=== PATIENT | female | born 1955 | race Caucasian/White ===

== ENCOUNTER 2023-10-24 13:51 | Inpatient (IN) | payer BC, MEDICARE ==
--- NOTE | 2023-10-24 14:46 | ED ---
General Adult HPI - General Chief complaint: Neck Pain/Injury Stated complaint: Swelling in neck Time Seen by Provider: 10/24/23 14:13 Source: patient Mode of arrival: wheelchair Limitations: no limitations - History of Present Illness Initial comments: Dictation was produced using [employer] dictation software. please excuse any grammatical, word or spelling errors. Chief Complaint: 68-year-old female presents to the emergency department with swollen left neck History of Present Illness: Patient is a 68-year-old female for the last several months she has noticed swelling and pain to her left neck. She thought that it was perhaps maybe her clavicle. States that the swelling has been there unchanged for the last several months until last week she was carrying heavy mulch she noticed that there was a change in size. She thought that perhaps may be that there was some sort of abnormality at the proximal clavicle. Patient today has been complaining of fever and chills. She also has been feeling short of breath and tingly all over. The ROS documented in this emergency department record has been reviewed and confirmed by me. Those systems with pertinent positive or negative responses have been documented in the HPI. All other systems are other negative and/or noncontributory. - Related Data Home Medications Medication Instructions Recorded Confirmed No Known Home Medications 10/24/23 10/24/23 Allergies Allergy/AdvReac Type Severity Reaction Status Date / Time No Known Allergies Allergy Verified 10/24/23 15:16 Review of Systems ROS Statement: Those systems with pertinent positive or pertinent negative responses have been documented in the HPI. ROS Other: All systems not noted in ROS Statement are negative. Past Medical History Past Medical History: No Reported History History of Any Multi-Drug Resistant Organisms: None Reported Past Surgical History: Breast Surgery, Orthopedic Surgery Additional Past Surgical History / Comment(s): ankle surgery Past Psychological History: No Psychological Hx Reported Smoking Status: Current some day smoker Past Alcohol Use History: Occasional Past Drug Use History: None Reported General Exam - General Exam Comments Initial Comments: PHYSICAL EXAM: General Impression: Alert and oriented x3, not in acute distress HEENT: Normocephalic atraumatic, extra-ocular movements intact, pupils equal and reactive to light bilaterally, mucous membranes moist, left neck shows swelling and induration without any redness to the left sternocleidomastoid and left proximal clavicle Cardiovascular: Heart regular rate and rhythm Chest: Able to complete full sentences, no retractions, no tachypnea Abdomen: abdomen soft, non-tender, non-distended, no organomegaly Musculoskeletal: Pulses present and equal in all extremities, no peripheral edema Motor: no focal deficits noted Neurological: CN II-XII grossly intact, no focal motor or sensory deficits noted Skin: Intact with no visualized rashes Psych: Normal affect and mood Limitations: no limitations Course Vital Signs 10/24/23 10/24/23 14:01 16:33 Temperature 97.8 F Pulse Rate 107 H 97 Respiratory 20 20 Rate Blood Pressure 125/67 128/73 O2 Sat by Pulse 99 95 Oximetry EKG Findings - EKG Comments: EKG Findings:: My EKG interpretation: Ventricular rate 101, sinus tachycardia,. 157, cures 90, QTc 389. No TN prolongation, no QTC prolongation, no ST or T-wave changes noted. Overall, this EKG is unremarkable Medical Decision Making - Medical Decision Making Was pt. sent in by a medical professional or institution (, PA, RN CHEMICAL DEPENDENCY, urgent care, hospital, or correction...) When possible be specific @ -No Did you speak to anyone other than the patient for history (EMS, parent, family, police, friend...)? What history was obtained from this source @ -No Did you review nursing and triage notes (agree or disagree)? Why? @ -I reviewed and agree with nursing and triage notes Were old charts reviewed (outside hosp., previous admission, EMS record, old EKG, old radiological studies, urgent care reports/EKG's, correction records)? Report findings @ -No old charts were reviewed Differential Diagnosis (chest pain, altered mental status, abdominal pain women, abdominal pain men, vaginal bleeding, musculoskeletal, weakness, fever, dyspnea, syncope, headache, dizziness, GI bleed, back pain, seizure, CVA, palpatations, mental health)? @ -Differential Fever: Pneumonia, viral URI, endocarditis, myocarditis, pericarditis, otitis, sinusitis, peritonsillar Abscess, retropharyngeal Abscess, epiglottitis, peritonitis, appendicitis, Teodora cystitis, diverticulitis, hepatitis, colitis, UTI, PID, TOA, pyelonephritis, prostatitis, epididymitis, meningitis, encephalitis, pulmonary embolism, CVA, thyroid storm, pancreatitis, adrenal crisis, cavernous sinus thrombosis, this is not meant to be an all-inclusive list. EKG interpreted by me (3pts min.). @ -See above X-rays interpreted by me (1pt min.). @ -None done CT interpreted by me (1pt min.). @ -CT soft tissue neck shows destruction of the left proximal clavicle. May be pathologic may be due to osteomyelitis or metastasis. There is also soft tissue hypodensity at the sternocleidomastoid. Concern for abscess versus hematoma. U/S interpreted by me (1pt. min.). @ -None done What testing was considered but not performed or refused? (CT, X-rays, U/S, labs)? Why? @ -None What meds were considered but not given or refused? Why? @ -None Did you discuss the management of the patient with other professionals ( professionals i.e. , PA, RN CHEMICAL DEPENDENCY, lab, RT, psych nurse, social media specialist, director of maintenance, teacher, transit authority police officer, caser in)? Give summary @ -Case discussed with hospitalist for admission Was smoking cessation discussed for >3mins.? @ -No Was critical care preformed (if so, how long)? @ -No Were there social determinants of health that impacted care today? How? (Homelessness, low income, unemployed, alcoholism, drug addiction, transportation, low edu. Level, literacy, decrease access to med. care, [facility], rehab)? @ -No Was there de-escalation of care discussed even if they declined (Discuss DNR or withdrawal of care, Hospice)? DNR status @ -No What co-morbidities impacted this encounter? (DM, HTN, Smoking, COPD, CAD, Cancer, CVA, ARF, Chemo, Hep., AIDS, mental health diagnosis, sleep apnea, morb id obesity)? @ -None Was patient admitted / discharged? Hospital course, mention meds given and rou te, prescriptions, significant lab abnormalities, going to OR and other pertinent info. @ -68-year-old female presents to the emergency department with acute on chronic neck pain. Vital signs upon arrival are within acceptable limits. Seems like patient had insidious onset of her symptoms that started initially back in June after she fell and hurt her left collarbone. She does have extending symptoms that go into her left proximal neck. Leukocytosis 27.1. Metabolic panel is within acceptable limits. CT soft tissue neck shows mass versus infection. Patient started antibiotics. Will be admitted with consultation to orthopedic surgery, ENT and infectious disease. Undiagnosed new problem with uncertain prognosis? @ -No Drug Therapy requiring intensive monitoring for toxicity (Heparin, Nitro, Insulin, Cardizem)? @ -No Were any procedures done? @ -No Diagnosis/symptom? Acute, or Chronic, or Acute on Chronic? Uncomplicated (without systemic symptoms) or Complicated (systemic symptoms)? @ -Neck mass Side effects of treatment? @ -No Exacerbation, Progression, or Severe Exacerbation? @ -No Poses a threat to life or bodily function? How? (Chest pain, USA, ME, pneumonia, PE, COPD, DKA, ARF, appy, cholecystitis, CVA, Diverticulitis, Homicidal, Suicidal, threat to staff... and all critical care pts) @ -yes - Lab Data Result diagrams: 10/24/23 15:09 10/24/23 15:09 Lab Results 10/24/23 10/24/23 Range/Units 15:09 15:09 WBC 27.1 H (3.8-10.6) k/uL RBC 4.15 (3.80-5.40) m/uL Hgb 12.0 (11.4-16.0) gm/dL Hct 38.6 (34.0-46.0) % MCV 93.0 (80.0-100.0) fL MCH 29.0 (25.0-35.0) pg MCHC 31.2 (31.0-37.0) g/dL RDW 15.2 (11.5-15.5) % Plt Count 244 (150-450) k/uL MPV 11.0 Neutrophils % 94 % Lymphocytes % 4 % Monocytes % 1 % Eosinophils % 0 % Basophils % 0 % Neutrophils # 25.6 H (1.3-7.7) k/uL Lymphocytes # 1.0 (1.0-4.8) k/uL Monocytes # 0.3 (0-1.0) k/uL Eosinophils # 0.1 (0-0.7) k/uL Basophils # 0.0 (0-0.2) k/uL Manual Slide Review Performed Sodium 135 L (137-145) mmol/L Potassium 3.2 L (3.5-5.1) mmol/L Chloride 103 (98-107) mmol/L Carbon Dioxide 17 L (22-30) mmol/L Anion Gap 15 mmol/L BUN 38 H (7-17) mg/dL Creatinine 1.27 H (0.52-1.04) mg/dL Est GFR (CKD-EPI)AfAm 50 (>60 ml/min/1.73 sqM) Est GFR (CKD-EPI)NonAf 43 (>60 ml/min/1.73 sqM) Glucose 107 H (74-99) mg/dL Calcium 8.4 (8.4-10.2) mg/dL Disposition Clinical Impression: Neck mass Disposition: ADMITTED IP TO THIS HOSP Condition: Fair Referrals: None,Stated [Primary Care Provider] - 1-2 days Decision Time: 17:42
[2023-10-24 15:27] LABS: African American GFR (CKD) 50 (>60 ml/min/1.73 sqM); Anion Gap 15 mmol/L; Blood Urea Nitrogen 38 mg/dL (7-17); Calcium 8.4 mg/dL (8.4-10.2); Carbon Dioxide 17 mmol/L (22-30); Chloride 103 mmol/L (98-107); Glucose 107 mg/dL (74-99); Non-African American GFR(CKD) 43 (>60 ml/min/1.73 sqM); Potassium 3.2 mmol/L (3.5-5.1); Sodium 135 mmol/L (137-145)
[2023-10-24 15:28] LABS: Basophils % (A) 0 %; Eosinophils # (A) 0.1 k/uL (0-0.7); Eosinophils % (A) 0 %; HCT 38.6 % (34.0-46.0); Lymphocytes % (A) 4 %; MCHC 31.2 g/dL (31.0-37.0); Monocytes # (A) 0.3 k/uL (0-1.0); Monocytes % (A) 1 %; Neutrophils # (A) 25.6 k/uL (1.3-7.7); Neutrophils % (A) 94 %; Platelet Count 244 k/uL (150-450); RBC 4.15 m/uL (3.80-5.40); RDW 15.2 % (11.5-15.5); WBC 27.1 k/uL (3.8-10.6)
[2023-10-24] MEDS: MORPHINE SULFATE 4 MG/ML SYRINGE IV STA (16:14)
--- NOTE | 2023-10-24 16:49 | CT ---
EXAMINATION TYPE: CT soft tissue neck w con DATE OF EXAM: 10/24/2023 COMPARISON: HISTORY: Left side neck mass. CT DLP: 216.7 mGycm CONTRAST: Patient injected with 80 mL of Isovue 300. TECHNIQUE: Axial images at 3 mm thick sections. Reconstructed images in the coronal plane and sagitt al plane are reviewed. FINDINGS: Limited CT sections are obtained the lung apices. The lung apices appear clear. CT neck: There is ill-defined hypodensity within the left sternocleidomastoid muscle. Muscle is expanded. This extends to the sternal clavicular junction. The left clavicular head is fragmented. Soft tissue hypo density extends from this area into the sternocleidomastoid muscle. Abscess and hematoma are primary within the differential. Underlying metastatic abnormality pathologic fracture should be considered a t the distal clavicle in addition to osteomyelitis. The torus tubarius and fossa of Rosenmuller are normal. [employer] spaces are normal. Paranasal sin uses and mastoid air cells are clear. Parotid glands appear normal and symmetrical. Submandibular glands, are normal. Parapharyngeal spac es are normal. No suspicious adenopathy is evident. The hypopharynx appears within normal limits. Vocal cord level appear symmetrical. Thyroid as visualized is normal. IMPRESSION: 1. Fracture fragments at the medial left clavicle. May be pathologic due to osteomyelitis or metastas is. 2. Soft tissue hypodensity extends from the fracture site into the sternal cleidomastoid muscle expan ding the muscle and extending to nearly the clavicular level. Abscess and hematoma felt to be most li joey within the differential.
[2023-10-24] MEDS ORDERED: VANCOMYCIN IV PER PHARMACY 1 EACH MISC MISCELLANE PRN (17:23)
[2023-10-24] MEDS ORDERED: MORPHINE SULFATE 4 MG/ML SYRINGE IV PRN (17:36)
[2023-10-24] MEDS ORDERED: NALOXONE 0.4 MG/ML 1 ML VIAL IV PRN (17:36)
[2023-10-24] MEDS ORDERED: PIPERACILLIN-TAZOBACTAM 3.375 GM in SODIUM CHLORIDE 0.9% 100 ML IVPB SCH (18:30)
[2023-10-24] MEDS: CEFEPIME 2 GM in SODIUM CHLORIDE 0.9% 100 ML IVPB STA (18:48)
[2023-10-24] MEDS: SODIUM CHLORIDE 0.9% 1,000 ML IV STA ×2 (18:49→18:56)
[2023-10-24] MEDS: KETOROLAC 15 MG/ML 1 ML VIAL IVP SCH (19:00)
[2023-10-24] MEDS: VANCOMYCIN 1,000 MG in SODIUM CHLORIDE 0.9% 250 ML IVPB STA (19:39)
--- NOTE | 2023-10-24 19:56 | CT ---
EXAMINATION TYPE: CT chest wo con DATE OF EXAM: 10/24/2023 COMPARISON: None HISTORY: Hypoxia. CT DLP: 310.2 mGycm, Automated exposure control for dose reduction was used. CONTRAST: Performed injected with 0 mL of Isovue 300. TECHNIQUE: Axial images were obtained at 5 mm thick sections. Reconstructed images are reviewed on [employer] computer in the coronal plane. FINDINGS: Portion of the thyroid visualized is normal. The pathologic fracture of the proximal left clavicle with surrounding soft tissue and extension into the sternocleidomastoid muscle is again evident. No new findings from the soft tissue CT neck study. Please see soft tissue neck CT study same date Mild infiltrates are at the bilateral dependent lung bases likely on the basis of atelectasis. No suspicious masses or consolidations evident. No enlarged mediastinal or hilar adenopathy is evident. The ascending aorta diameter at the level o f the main pulmonary artery is 3.7 cm. The main pulmonary artery diameter at the bifurcation is 3.3 cm. Coronary artery calcification is present. Limited CT sections are obtained through the upper abdomen. Abdomen is essentially unremarkable. Bila teral breast prostheses are present. IMPRESSION: 1. Abnormality at the proximal left clavicle with extension into the sternocleidomastoid muscle. No n ew findings on this current examination. Please see CT soft tissue neck report same date. 2. Mild dependent atelectasis lung bases. No other acute pulmonary process radiographically apparent.
[2023-10-24] MEDS: IPRATROPIUM-ALBUTEROL 3 ML NEB INHALATION SCH (20:03)
[2023-10-24] MEDS: ENOXAPARIN 40 MG/0.4 ML SYRINGE SQ SCH (23:00)
[2023-10-25 02:49] LABS: African American GFR (CKD) 77 (>60 ml/min/1.73 sqM); Non-African American GFR(CKD) 66 (>60 ml/min/1.73 sqM)
[2023-10-25] MEDS: HYDROcodone/APAP 5-325MG 1 EACH TAB PO STA (06:17)
[2023-10-25] MEDS: LIDOCAINE VISCOUS 2% 15 ML CUP MUCOUS MEM ONE (06:18)
--- NOTE | 2023-10-25 06:54 | HP ---
HISTORY AND PHYSICAL HISTORY OF PRESENT ILLNESS: She is a 68-year-old white female, she had a pathologic fracture 3 or 4 months ago on her clavicle. She came in to the hospital due to severe neck swelling and swelling about the shoulder fracture in her left clavicle working next to the sternum. She went several months before the swelling occurred and it just happened happen today. She had high fever or chills for the last 2 or 3 days at home. She feels short of breath and tingly all over. Her oxygen level is low in the low 90s on 2 to 3 L. CAT scan of the chest showed atelectasis changes. Await for Cardiology consult, elevated troponin. Pulmonary is consulted. Started her on breathing treatments. She is on cefepime and vancomycin for possible abscess in her neck and breathing treatments currently at this time and oxygen. Apparently, she has surgical history of breast surgery, orthopedic surgery, otherwise current some day smoker. REVIEW OF SYSTEMS: A 14-point review of systems is negative. ALLERGIES: Negative. MEDICINES: Negative. PHYSICAL EXAMINATION: GENERAL: She appears to be in mild respiratory distress. VITAL SIGNS: Respiratory rate 20 to 25, oxygen level is 90 on room air, now 91 to 92 on 3 L. CHEST: I do not hear any stridor. Lungs showed decreased breath sounds x4. CARDIOVASCULAR: S1, S2. ABDOMEN: Soft. EXTREMITIES: No cyanosis, clubbing, or edema. INTEGUMENT: She has swelling of the neck down to the area of the clavicle, mild to moderate. Dry skin, dry skin turgor. IMAGING: CAT scan of the chest shows atelectasis in the bases. White count 27,000, left shift. Blood pressure is 120s to 130s over 57 to 73; sat as mentioned 90 on room air, now she is at 91 to 92 on 3 L; temp 97.8; pulse 97 to 107; respiratory rate 25 to 30. EKG showed 101 heart rate, sinus tachycardia, no ST-T changes. Sodium was 135, potassium 3.2, BUN is 38, creatinine 1.27. Neck mass, suspect abscess, pathological clavicle fracture, hypoxemia, unclear etiology, elevated troponin, will rule out CO, put her on Lovenox due to elevated troponins until cardiology sees her. Continue breathing treatments. Get pulmonary consult. Infectious Disease in ENT and Orthopedic surgery for the neck issues. She is on vancomycin, cefepime, and blood cultures have been ordered. She has been spiking fevers of 102. Prognosis is extremely guarded. Please see further orders. MMODL / IJN: [id number] /
[2023-10-25] MEDS: CEFEPIME 1 GM in SODIUM CHLORIDE 0.9% 50 ML IVPB SCH (10:14)
--- NOTE | 2023-10-25 10:52 | P.CRDCN ---
History of Present Illness Consult date: 10/25/23 Reason for Consult (text): Elevated troponins History of present illness: History of present illness: This is a 68-year-old female not currently on any medications. She does not follow with a pack changer with no previous cardiac history. Patient gives history that she had a trip and fall in June 2023 and has had no treatment at that time but injured her shoulder. Her son brought her into the hospital yesterday because they were having difficulty reaching her by phone and when he found her she was confused and dehydrated. Patient states she woke up and found that her left neck was swollen which was new for her. Patient denies having any chest pain. No shortness of breath. Patient is seen today in the emergency center waiting for a bed on the observation unit. She denies any family history of coronary artery disease. She is an active smoker. She denies any alcohol or drug use. EKG sinus rhythm CT chest: Abnormality at the proximal left clavicle with extension into the sternocleidomastoid muscle. Mild dependent atelectasis lung bases. CT soft tissue of the neck revealed a fracture fragments at the medial left cl avicle may be pathologic due to osteomyelitis or metastasis. Soft tissue hypodensity extends from the fracture site into the sternocleidomastoid muscle expanding the muscle and extending to the nearly the clavicular level. Abscess and hematoma felt to be most likely within the differential. WBC 27.1, hemoglobin 12. Sodium 135, potassium 3.2, chloride 103, CO2 17, BUN 38 creatinine 1.27. Troponin 0.168 and 0.158. Procalcitonin 62.8. Home cardiac medications: None Review Of Systems: At the time of my exam: CONSTITUTIONAL: Denies fever or chills. HEENT: Denies blurred vision, vision changes, or eye pain. Denies hemoptysis CARDIOVASCULAR: Denies chest pain. Denies orthopnea. Denies PND. Denies palpitations RESPIRATORY: Denies shortness of breath. GASTROINTESTINAL: Denies abdominal pain. Denies nausea or vomiting. HEMATOLOGIC: Denies bleeding disorders. GENITOURINARY: Denies any blood in urine. SKIN: Denies pruitis. Denies rash. Physical examination: Gen: This is a disheveled 68-year-old female. No acute distress. VS: reviewed blood pressure 133/75, heart rate 100, pulse ox 92% on 2 L nasal cannula. HEENT: Head is atraumatic, normocephalic. Pupils equal, round. Sclerae is an icteric. NECK: Supple. No JVD. LUNGS: Clear to auscultation. No wheezes or rhonchi. No intercostal retractions. HEART: Regular rate and rhythm. No murmur. ABDOMEN: Soft No tenderness. EXTREMITIES: No pedal edema. No calf tenderness. NEUROLOGICAL: Patient is awake, alert and oriented x3. Assessment: Elevated troponin of unclear significance Leukocytosis Acute kidney injury Left clavicle fracture fragments, pathologic due to osteomyelitis or better stasis Sternocleidomastoid abscess and/or hematoma Plan: Obtain 2-D echocardiogram and Doppler study to assess cardiac structure and function Further recommendations to follow based upon results of echocardiogram Thank you kindly for this consultation. Nurse practitioner note has been reviewed, I agree with documented findings and plan of care. Patient was seen and examined. Past Medical History Past Medical History: No Reported History History of Any Multi-Drug Resistant Organisms: None Reported Past Surgical History: Breast Surgery, Orthopedic Surgery Additional Past Surgical History / Comment(s): ankle surgery, detached retina Past Psychological History: No Psychological Hx Reported Smoking Status: Current some day smoker Past Alcohol Use History: Occasional Past Drug Use History: None Reported - Past Family History Father Family Medical History: Congestive Heart Failure (CHF) Medications and Allergies Home Medications Medication Instructions Recorded Confirmed Type No Known Home Medications 10/24/23 10/24/23 History Allergies Allergy/AdvReac Type Severity Reaction Status Date / Time No Known Allergies Allergy Verified 10/24/23 15:16 Physical Exam Vitals: Vital Signs Temp Pulse Resp BP Pulse Ox 10/25/23 08:04 98.1 F 91 18 122/71 91 L 10/25/23 05:27 98.4 F 102 H 18 140/76 94 L 10/25/23 03:11 100 16 145/74 92 L 10/25/23 00:33 97 18 133/75 93 L 10/24/23 22:05 99 20 135/65 91 L 10/24/23 21:22 98 20 126/69 88 L 10/24/23 20:14 99 10/24/23 20:04 76 10/24/23 20:00 100 18 128/73 91 L 10/24/23 16:33 97 20 128/73 95 10/24/23 14:01 97.8 F 107 H 20 125/67 99 Intake and Output 10/24/23 10/25/23 10/25/23 22:59 06:59 14:59 Output Total 270 Balance -270 Output: Urine 270 Other: Voiding Method Diaper Incontinent External Catheter Weight 54.431 kg Results 10/24/23 15:09 10/25/23 02:14 Cardiac Enzymes 10/24/23 10/25/23 Range/Units 19:06 02:14 Troponin I 0.168 H* 0.158 H* (0.000-0.034) ng/mL CBC 10/24/23 Range/Units 15:09 WBC 27.1 H (3.8-10.6) k/uL RBC 4.15 (3.80-5.40) m/uL Hgb 12.0 (11.4-16.0) gm/dL Hct 38.6 (34.0-46.0) % Plt Count 244 (150-450) k/uL Comprehensive Metabolic Panel 10/24/23 10/25/23 Range/Units 15:09 02:14 Sodium 135 L (137-145) mmol/L Potassium 3.2 L (3.5-5.1) mmol/L Chloride 103 (98-107) mmol/L Carbon Dioxide 17 L (22-30) mmol/L BUN 38 H (7-17) mg/dL Creatinine 1.27 H 0.89 (0.52-1.04) mg/dL Glucose 107 H (74-99) mg/dL Calcium 8.4 (8.4-10.2) mg/dL Current Medications Generic Name Dose Route Start Last Admin Trade Name Freq PRN Reason Stop Dose Admin Albuterol/Ipratropium 3 ml 10/24/23 20:00 10/24/23 20:03 Ipratropium-Albuterol 3 Ml Neb INHALATION 3 ml RT-QID MICHELLE Administration Enoxaparin Sodium 40 mg 10/24/23 23:00 10/24/23 23:00 Enoxaparin 40 Mg/0.4 Ml Syringe SQ 40 mg HS MICHELLE Administration Vancomycin HCl 1,000 mg/ 250 mls @ 125 mls/hr 10/25/23 12:00 Sodium Chloride IVPB Q24H MICHELLE Cefepime HCl 1 gm/ Sodium 50 mls @ 12.5 mls/hr 10/25/23 09:00 Chloride IVPB Q12HR MICHELLE Protocol Ketorolac Tromethamine 15 mg 10/24/23 18:45 10/25/23 06:18 Ketorolac 15 Mg/Ml 1 Ml Vial IVP 10/29/23 18:35 15 mg Q6HR MICHELLE Administration Naloxone HCl 0.2 mg 10/24/23 17:36 Naloxone 0.4 Mg/Ml 1 Ml Vial IV Q2M PRN Opioid Reversal Intake and Output 10/24/23 10/25/23 10/25/23 22:59 06:59 14:59 Output Total 270 Balance -270 Output: Urine 270 Other: Voiding Method Diaper Incontinent External Catheter Weight 54.431 kg 10/24/23 15:09 10/25/23 02:14
[2023-10-25 13:32] LABS: Basophils % (A) 0 %; Eosinophils % (A) 0 %; HCT 38.1 % (34.0-46.0); HGB 11.9 gm/dL (11.4-16.0); Lymphocytes # (A) 0.9 k/uL (1.0-4.8); Lymphocytes % (A) 4 %; MCH 29.1 pg (25.0-35.0); MCHC 31.3 g/dL (31.0-37.0); MCV 93.2 fL (80.0-100.0); Monocytes # (A) 0.3 k/uL (0-1.0); Monocytes % (A) 1 %; Neutrophils # (A) 23.1 k/uL (1.3-7.7); Neutrophils % (A) 94 %; Platelet Count 221 k/uL (150-450); RBC 4.09 m/uL (3.80-5.40); RDW 15.1 % (11.5-15.5); WBC 24.6 k/uL (3.8-10.6)
[2023-10-25] MEDS: VANCOMYCIN 1,000 MG in SODIUM CHLORIDE 0.9% 250 ML IVPB SCH (13:32)
[2023-10-25 13:41] LABS: ALT 43 U/L (4-34); AST 117 U/L (14-36); African American GFR (CKD) >90 (>60 ml/min/1.73 sqM); Albumin 2.5 g/dL (3.5-5.0); Albumin/Globulin Ratio 0.9; Alkaline Phosphatase 402 U/L (38-126); Anion Gap 13 mmol/L; Blood Urea Nitrogen 34 mg/dL (7-17); Calcium 8.7 mg/dL (8.4-10.2); Carbon Dioxide 15 mmol/L (22-30); Chloride 106 mmol/L (98-107); Globulin 2.7 g/dL; Glucose 119 mg/dL (74-99); Non-African American GFR(CKD) 88 (>60 ml/min/1.73 sqM); Potassium 3.3 mmol/L (3.5-5.1); Sodium 134 mmol/L (137-145); Total Bilirubin 1.5 mg/dL (0.2-1.3); Total Protein 5.2 g/dL (6.3-8.2)
[2023-10-25 14:37] LABS: Large Platelets Present; RBC Morphology Normal
--- NOTE | 2023-10-25 17:52 | CA ---
Transthoracic Echo Report Name: Chip Smith Age: 68 Gender: F : 1955 Exam Date: 10/25/2023 13:22 Exam Location: [facility] Ht (in): 66 Wt (lb): 120 Ordering Physician: Kingsley Ch MD Attending/Referring Phys: [employer] Plant Equipment Operator Nia Bahena RDCS Procedure CPT: Indications: elevated troponin Cardiac Hx: Technical Quality: Contrast 1: Total Dose (mL): Contrast 2: Total Dose (mL): MEASUREMENTS (Male / Female) Normal Values 2D ECHO LV Diastolic Diameter PLAX 3.6 cm 4.2 - 5.9 / 3.9 - 5.3 cm LV Systolic Diameter PLAX 1.6 cm IVS Diastolic Thickness 1.1 cm 0.6 - 1.0 / 0.6 - 0.9 cm LVPW Diastolic Thickness 1.3 cm 0.6 - 1.0 / 0.6 - 0.9 cm LV Relative Wall Thickness 0.7 RV Internal Dim ED PLAX 1.5 cm LA Systolic Diameter LX 3.5 cm 3.0 - 4.0 / 2.7 - 3.8 cm LV Diastolic Volume MOD 4C 68.5 cm??? LV Systolic Volume MOD 4C 31.2 cm??? LV Ejection Fraction MOD 4C 54.4 % LV Cardiac Index MOD 4C 2303.5 cm???/min???m??? LV Diastolic Length 4C 7.5 cm LV Systolic Length 4C 6.2 cm LV Diastolic Volume MOD 2C 72.9 cm??? LV Systolic Volume MOD 2C 28.1 cm??? LV Ejection Fraction MOD 2C 61.5 % LV Cardiac Index MOD 2C 2767.8 cm???/min???m??? LV Diastolic Length 2C 8.0 cm LV Systolic Length 2C 6.2 cm Ascending Aorta Diameter 3.6 cm M-MODE Aortic Root Diameter MM 3.1 cm LA Systolic Diameter MM 3.0 cm LA Ao Ratio MM 0.9 DOPPLER AV Peak Velocity 161.0 cm/s AV Peak Gradient 10.4 mmHg Mitral E Point Velocity 73.4 cm/s Mitral A Point Velocity 117.7 cm/s Mitral E to A Ratio 0.6 MV Deceleration Time 272.0 ms MV E' Velocity 4.5 cm/s Mitral E to MV E' Ratio 16.4 TR Peak Velocity 218.3 cm/s TR Peak Gradient 19.1 mmHg Right Ventricular Systolic Press 25.1 mmHg FINDINGS Left Ventricle Left ventricular ejection fraction is estimated at 55-60 %. Mildly increased septal wall thickness. . Normal left ventricular systolic function with no obvious regional wall motion abnormalities. Left ventricular cavity size normal. Right Ventricle Normal right ventricular size and function. Right ventricular systolic pressure within normal limits. Right Atrium Normal right atrial pressure. Left Atrium Normal left atrial size. Mitral Valve No mitral stenosis. Mild mitral regurgitation. Structurally normal mitral valve. Aortic Valve Trileaflet aortic valve. No aortic valve stenosis or regurgitation. Tricuspid Valve Structurally normal tricuspid valve. No tricuspid stenosis. Mild tricuspid regurgitation. Pulmonic Valve Structurally normal pulmonic valve. Trace pulmonic regurgitation. Pericardium No pericardial effusion. Aorta Normal size aortic root and proximal ascending aorta. CONCLUSIONS Normal LV function Previewed by: Dr. Urban Taylor MD (Electronically Signed) Final Date: 25 October 2023 17:51
[2023-10-25] MEDS: NYSTATIN 100,000 UNIT/ML SUSP 500,000 UNIT/5 ML CUP PO SCH (17:59)
--- NOTE | 2023-10-25 18:00 | CONS ---
CONSULTATION REASON FOR CONSULTATION: Neck mass. HISTORY OF PRESENT ILLNESS: This is a 68-year-old white female, who presented to the ER after her son found her confused and dehydrated. She was noted to have a left neck mass. She gives history that she fell in June on her left shoulder and injured her shoulder and allowed this to heal by itself without any medical treatment. She had Cardiology consult, which was already performed. She is not taking medications at home. She had a CT of the neck and chest. The chest CT was negative other than the neck findings. The neck findings showed fragmented left clavicular head with soft tissue hypodensity in this area and into the sternocleidomastoid with possible abscess or hematoma in the differential. Underlying metastatic abnormality or pathological fracture was also to be considered. No other neck masses were noted. She denies any sore throat, dysphagia, and only mild discomfort in the left clavicular area. She has had no respiratory difficulty. She does state that she has dry mouth. Orthopedic consultation is still pending as well as the Infectious Disease consult. She has a long history of smoking. PAST MEDICAL HISTORY: Apparent history of breast surgery, orthopedic surgery. As above. PAST SURGICAL HISTORY: As above. ALLERGIES: No known drug allergies. MEDICATIONS: At home, none. SOCIAL HISTORY: Does smoke. Alcohol consumption occasional. REVIEW OF SYSTEMS: 14-point review of systems is negative other than as above. PHYSICAL EXAMINATION: VITAL SIGNS: Shows she is afebrile, pulse mildly elevated in the 90s, respiratory rate within normal limits. Blood pressure is unremarkable. Pulse ox is in the low 90s, but upper 90s with oxygen. GENERAL: Well-developed white female, in no acute distress. Her son is in attendance. HEENT: Head, normocephalic and atraumatic. Ears, bilaterally canals are clear. Tympanic membranes are unremarkable and mobile. Nose shows no drainage or obstruction. Mouth and throat shows relative dryness of the mucosa, but no lesions are noted. NECK: Supple. No adenopathy. No tenderness. There is some mild to moderate diffuse fullness of the soft tissues over the left clavicle, but no erythema or fluctuance. No ecchymosis. ASSESSMENT: 1. Left inferior neck mass. 2. Left clavicle fracture-posttraumatic versus pathologic. PLAN: Recommend awaiting orthopedic consultation for further guidance. Certainly, the mass- effect surrounding the clavicular fracture may be an old hematoma, less likely infectious, although she is on empiric antibiotics and awaiting Infectious Disease consultation and even though she has elevated white blood cell count, this is not fluctuant or erythematous and suspect less likely to be abscess and possible hematoma. Certainly, ultrasound-guided fine-needle aspiration by Radiology would be reasonable if this would be agreeable with orthopedic consultation and this would be helpful to rule out any primary or metastatic malignancy in this area. If agreeable, orthopedic fashion consultant or primary service could order this at the Radiology Department. This may lend further guidance. If there are any questions or concerns regarding this or otherwise this consultation, please feel free to contact me. MMODL / IJN: [id number] /
--- NOTE | 2023-10-25 22:58 | P.CONS ---
History of Present Illness - Reason for Consult Consult date: 10/25/23 - History of Present Illness Patient is a 68-year-old female currently not on any medication apparently tripped and fall in June 2023 and apparently injured her left shoulder patient seem to be doing well however patient mention yesterday she started having increasing swelling and discomfort to the left side of the shoulder and the neck area patient also complaining of feeling weak and was noticed to be confused patient was describing pain to the left side of neck to be sharp moderate intensity without radiation denies any difficulty swallowing or difficulty breathing denies any headache or URI symptoms no chest pain or shortness of breath occasional cough no abdominal pain no diarrhea with the symptoms the patient was brought into the hospital on arrival to the ER the patient was afebrile patient was not tachycardic or hypotensive mildly hypoxic currently on 2 L nasal cannula oxygen patient did have a white count of 27.1 BUN and creatinine was mildly elevated troponins are mildly elevated and liver enzymes are elevated patient did have a CT of the soft tissue of the neck fragments at the medial left clavicle manage pathologic due to osteomyelitis of mental status soft tissue hypodensity extending from the fracture site into the sternocleidomastoid muscle expanding the muscle and extending to nearly the clavicular level abscess and hematoma felt to be most likely differential patient was started on vancomycin and cefepime infectious disease was consulted for further management of antibiotic therapy Past Medical History Past Medical History: No Reported History History of Any Multi-Drug Resistant Organisms: None Reported Past Surgical History: Breast Surgery, Orthopedic Surgery Additional Past Surgical History / Comment(s): ankle surgery, detached retina Past Psychological History: No Psychological Hx Reported Smoking Status: Current some day smoker Past Alcohol Use History: Occasional Past Drug Use History: None Reported - Past Family History Father Family Medical History: Congestive Heart Failure (CHF) Medications and Allergies Home Medications Medication Instructions Recorded Confirmed Type No Known Home Medications 10/24/23 10/24/23 History Allergies Allergy/AdvReac Type Severity Reaction Status Date / Time No Known Allergies Allergy Verified 10/24/23 15:16 Physical Exam Vitals: Vital Signs Temp Pulse Resp BP Pulse Ox 10/25/23 11:05 93 16 10/25/23 10:13 100 18 133/75 92 L 10/25/23 08:41 97 10/25/23 08:34 84 18 10/25/23 08:22 85 18 10/25/23 08:04 98.1 F 91 18 122/71 91 L 10/25/23 05:27 98.4 F 102 H 18 140/76 94 L 10/25/23 03:11 100 16 145/74 92 L 10/25/23 00:33 97 18 133/75 93 L 10/24/23 22:05 99 20 135/65 91 L 10/24/23 21:22 98 20 126/69 88 L 10/24/23 20:14 99 10/24/23 20:04 76 10/24/23 20:00 100 18 128/73 91 L 10/24/23 16:33 97 20 128/73 95 10/24/23 14:01 97.8 F 107 H 20 125/67 99 Intake and Output 10/24/23 10/25/23 10/25/23 22:59 06:59 14:59 Output Total 270 Balance -270 Output: Urine 270 Other: Voiding Method Diaper Incontinent External Catheter Weight 54.431 kg Results CBC & Chem 7: 10/26/23 05:59 10/26/23 05:59 Labs: Abnormal Lab Results - Last 24 Hours (Table) 10/24/23 10/24/23 10/24/23 Range/Units 15:09 15:09 19:06 WBC 27.1 H (3.8-10.6) k/uL Neutrophils # 25.6 H (1.3-7.7) k/uL Sodium 135 L (137-145) mmol/L Potassium 3.2 L (3.5-5.1) mmol/L Carbon Dioxide 17 L (22-30) mmol/L BUN 38 H (7-17) mg/dL Creatinine 1.27 H (0.52-1.04) mg/dL Glucose 107 H (74-99) mg/dL Troponin I 0.168 H* (0.000-0.034) ng/mL Procalcitonin (0.02-0.09) ng/mL 10/25/23 10/25/23 Range/Units 02:14 02:14 WBC (3.8-10.6) k/uL Neutrophils # (1.3-7.7) k/uL Sodium (137-145) mmol/L Potassium (3.5-5.1) mmol/L Carbon Dioxide (22-30) mmol/L BUN (7-17) mg/dL Creatinine (0.52-1.04) mg/dL Glucose (74-99) mg/dL Troponin I 0.158 H* (0.000-0.034) ng/mL Procalcitonin 62.80 H (0.02-0.09) ng/mL Assessment and Plan Plan: 1patient presented to hospital with the left side neck and shoulder area pain and swelling in this patient who did have elevated white count but no fever with a previous history of trauma and question of hematoma and possibly second infected hematoma/abscess not entirely excluded 2-patient would benefit from either surgical versus IR drainage of the area that will help differentiate between hematoma versus abscess as well as obtain specimen for culture this has been explained to the patient and the daughter in layman terms 3-patient to continue medical vancomycin and cefepime while waiting for the workup to be completed 4-check inflammatory markers We will follow on clinical condition and cultures to further adjust medication if needed Thank you for this consultation we will follow the patient along with you Dictation was produced using [email or web address] dictation software. please excuse any grammatical, word or spelling errors. Time with Patient: Greater than 30
[2023-10-25] MEDS: AMPICILLIN-SULBACTAM 3 GM in SODIUM CHLORIDE 0.9% 100 ML IVPB SCH (23:21)
--- NOTE | 2023-10-26 02:50 | PN ---
PROGRESS NOTE OBJECTIVE: Seen by [facility], who saw the patient this afternoon, discussed with her. Her neck appears to be decreasing in size. Dr. Garcia of [facility] saw her for left inferior neck mass, left clavicular fracture posttraumatic versus pathologic. Awaiting orthopedic consultation for further guidance. Possibly an old hematoma less likely infectious, taking antibiotics which appeared to be working as it spread up her neck. Dr. Garcia thinks it might be possible hematoma. Ultrasound- guided fine-needle aspiration by radiology would be reasonable. I will talk to the radiation tsering prior to getting that ordered. PROGNOSIS: Guarded. MMODL / IJN: [id number] /
[2023-10-26 06:52] LABS: ALT 36 U/L (4-34); AST 76 U/L (14-36); African American GFR (CKD) >90 (>60 ml/min/1.73 sqM); Albumin 2.2 g/dL (3.5-5.0); Albumin/Globulin Ratio 0.8; Alkaline Phosphatase 404 U/L (38-126); Anion Gap 10 mmol/L; Blood Urea Nitrogen 26 mg/dL (7-17); Calcium 8.3 mg/dL (8.4-10.2); Carbon Dioxide 17 mmol/L (22-30); Chloride 107 mmol/L (98-107); Globulin 2.7 g/dL; Glucose 102 mg/dL (74-99); Non-African American GFR(CKD) >90 (>60 ml/min/1.73 sqM); Potassium 3.3 mmol/L (3.5-5.1); Sodium 134 mmol/L (137-145); Total Bilirubin 2.2 mg/dL (0.2-1.3); Total Protein 4.9 g/dL (6.3-8.2)
[2023-10-26 08:43] LABS: Basophils # (A) 0.06 X 10*3/uL (0.00-0.10); Basophils % (A) 0.3 %; Eosinophils # (A) 0.03 X 10*3/uL (0.04-0.35); Eosinophils % (A) 0.1 %; HGB 10.7 g/dL (12.0-15.0); Lymphocytes # (A) 0.78 X 10*3/uL (0.90-5.00); Lymphocytes % (A) 3.7 %; MCH 28.5 pg (27.0-32.0); MCHC 33.4 g/dL (32.0-37.0); MCV 85.1 FL (80.0-97.0); Mean Platelet Volume 12.9 FL (9.5-12.2); Monocytes # (A) 0.56 X 10*3/uL (0.20-1.00); Monocytes % (A) 2.6 %; NRBC Per 100 WBC 0 X 10*3/uL (0.00-0.01); Neutrophils # (A) 19.13 X 10*3/uL (1.80-7.70); Neutrophils % (A) 90.6 %; Platelet Count 207 X 10*3/uL (140-440); RBC 3.76 X 10*6/uL (4.10-5.20); RDW 16.2 % (11.5-14.5); WBC 21.14 X 10*3/uL (4.50-10.00)
--- NOTE | 2023-10-26 10:05 | P.CNPUL ---
History of Present Illness Consult date: 10/26/23 Reason for consult: dyspnea, COPD, hypoxemia Chief complaint: shortness of breath History of present illness: 68-year-old female seen eval reexamined date of obtained from the daughter present at bedside as well as continued repeated by patient as well. Her daughter describes that patient has a injury of the left sided clavicle around [place] however she didn't seek any medical attention she hurt herself at work again while she was lifting a heavy object at the same time she started having aches and pains all over with diffuse arthralgia tiredness and fatigue and also noted to have a left neck swelling came into the hospital for further evaluation. She had a ECG which was positive for sinus tachycardia, computed tomography scan of theneck and chest revealed abnormality in proximal clavicle with extension into the sternocleidomastoid muscle, mild infiltrate at the bases likely atelectasiscomment is made of pathologic fracture of proximal left clavicle with surrounding soft tissue extension into sternocleidomastoidwith a differential diagnoses of osteomyelitis or metastatic disease, abscess or hematoma. She denies any alcohol use denies any smoking except socially. For last 1 week she is having lots of aches and pain and joint pain and arthralgia she denies any losing weight denies any night sweats or fevers chillsshe is feeling soreness in the mouth with difficulty in swallowingechocardiogram is 55- 60% ejection fractioncurrently she is on bronchodilators with DuoNeb also on Unasyn, Lovenox for DVT prophylaxis and vancomycin, her white cell count is 24,000 with hemoglobin hematocrit 11/38 platelet count of 221 sodium is 134 compression 3.3 BUN/creatinine 34/0.71 AST/ALT elevated 117/43 with alk phos of 402, pro calcitonin elevated at 62 troponin is 0.168 Repeat 0.158 cardiovascular services following, initially BUN/creatinine was 38/1.27 improved to almost within normal range now with rehydration Review of Systems All systems: negative Past Medical History Past Medical History: No Reported History History of Any Multi-Drug Resistant Organisms: None Reported Past Surgical History: Breast Surgery, Orthopedic Surgery Additional Past Surgical History / Comment(s): ankle surgery, detached retina Past Psychological History: No Psychological Hx Reported Smoking Status: Current some day smoker Past Alcohol Use History: Occasional Past Drug Use History: None Reported - Past Family History Father Family Medical History: Congestive Heart Failure (CHF) Medications and Allergies Home Medications Medication Instructions Recorded Confirmed Type No Known Home Medications 10/24/23 10/24/23 History Allergies Allergy/AdvReac Type Severity Reaction Status Date / Time No Known Allergies Allergy Verified 10/24/23 15:16 Physical Exam Vitals: Vital Signs Temp Pulse Pulse Resp BP BP Pulse Ox 10/26/23 08:00 99.3 F 90 19 148/80 91 L 10/26/23 07:55 91 L 10/26/23 02:00 99.0 F 63 20 160/85 91 L 10/25/23 19:57 90 L 10/25/23 19:36 99.2 F 68 16 141/81 91 L 10/25/23 14:00 98.3 F 20 156/80 163/94 88 L 10/25/23 13:27 96 18 156/80 93 L 10/25/23 13:00 134/65 88 L 10/25/23 11:15 96 16 10/25/23 11:05 93 16 10/25/23 10:13 100 18 133/75 92 L Intake and Output 10/25/23 10/26/23 10/26/23 22:59 06:59 14:59 Intake Total 240 1490 Output Total 200 300 Balance 40 1190 Intake: Intake, IV Titration 500 Amount Ampicillin-Sulbactam 3 gm 200 In Sodium Chloride 0.9% 100 ml @ 200 mls/hr IVPB Q6HR MICHELLE Rx#:[id number] Cefepime 1 gm In Sodium 50 Chloride 0.9% 50 ml @ 12. 5 mls/hr IVPB Q12HR MICHELLE Rx#:[id number] Vancomycin 1,000 mg In 250 Sodium Chloride 0.9% 250 ml @ 125 mls/hr IVPB Q16H MICHELLE Rx#:[id number] Oral 240 990 Output: Urine 200 300 Other: Voiding Method Diaper Incontinent External Catheter - Constitutional General appearance: average body habitus, cooperative, disheveled, mild distress - EENT Eyes: EOMI, PERRLA, poor dentition ENT: thrush Ears: bilateral: normal - Neck Neck: normal ROM Carotids: bilateral: upstroke normal Thyroid: bilateral: normal size - Respiratory Respiratory: bilateral: CTA - Cardiovascular Rhythm: regular Heart sounds: normal: S1, S2 - Gastrointestinal General gastrointestinal: decreased bowel sounds, normal bowel sounds, soft - Integumentary Integumentary: normal turgor - Neurologic Neurologic: CNII-XII intact - Musculoskeletal Musculoskeletal: gait normal, generalized weakness, strength equal bilaterally - Psychiatric Psychiatric: A&O x's 3, appropriate affect, intact judgment & insight Results - Laboratory Findings CBC and BMP: 10/26/23 05:59 10/26/23 05:59 Abnormal lab findings: Abnormal Labs 10/24/23 10/24/23 10/24/23 15:09 15:09 19:06 WBC 27.1 H RBC Hgb Hct RDW MPV Immature Gran # Neutrophils # 25.6 H Lymphocytes # Eosinophils # Sodium 135 L Potassium 3.2 L Carbon Dioxide 17 L BUN 38 H Creatinine 1.27 H Glucose 107 H Calcium Total Bilirubin AST ALT Alkaline Phosphatase Troponin I 0.168 H* C-Reactive Protein Total Protein Albumin Procalcitonin 10/25/23 10/25/23 10/25/23 02:14 02:14 13:09 WBC 24.6 H RBC Hgb Hct RDW MPV Immature Gran # Neutrophils # 23.1 H Lymphocytes # 0.9 L Eosinophils # Sodium Potassium Carbon Dioxide BUN Creatinine Glucose Calcium Total Bilirubin AST ALT Alkaline Phosphatase Troponin I 0.158 H* C-Reactive Protein Total Protein Albumin Procalcitonin 62.80 H 10/25/23 10/25/23 10/25/23 13:09 23:26 23:26 WBC RBC Hgb Hct RDW MPV Immature Gran # Neutrophils # Lymphocytes # Eosinophils # Sodium 134 L Potassium 3.3 L Carbon Dioxide 15 L BUN 34 H Creatinine Glucose 119 H Calcium Total Bilirubin 1.5 H AST 117 H ALT 43 H Alkaline Phosphatase 402 H Troponin I C-Reactive Protein 32.3 H Total Protein 5.2 L Albumin 2.5 L Procalcitonin 20.80 H 10/26/23 10/26/23 05:59 05:59 WBC 21.14 H RBC 3.76 L Hgb 10.7 L Hct 32.0 L RDW 16.2 H MPV 12.9 H Immature Gran # 0.58 H Neutrophils # 19.13 H Lymphocytes # 0.78 L Eosinophils # 0.03 L Sodium 134 L Potassium 3.3 L Carbon Dioxide 17 L BUN 26 H Creatinine Glucose 102 H Calcium 8.3 L Total Bilirubin 2.2 H AST 76 H ALT 36 H Alkaline Phosphatase 404 H Troponin I C-Reactive Protein Total Protein 4.9 L Albumin 2.2 L Procalcitonin - Diagnostic Findings Chest x-ray: report reviewed, image reviewed CT scan - chest: report reviewed, image reviewed (finding as noted above) Assessment and Plan Assessment: left clavicle or mass/pathologic fracture with abscesses or hematoma formation Basal atelectasis in the lung Sepsis associated with leukocytosis and elevated inflammatory marker likely source being clavicle Acute kidney injury improved with rehydration Electrolyte imbalance due to hyponatremia on replacement therapy Elevated liver enzyme including alk phos Elevated troponin demand ischemia Complain of diffuse arthralgia and fatigue and pain Plan: continue broad-spectrum antibiotics with vancomycin and Unasyn Continue gentle hydration Replace potassium Continue nystatin swish and swallow will add Diflucan Patient awaiting evaluation by interventional radiology for left Clavicle aspiration biopsy Time with Patient: Greater than 30
[2023-10-26] MEDS: FLUCONAZOLE 100 MG TAB PO SCH (10:42)
[2023-10-26 10:49] LABS: INR 1.1 (<1.2); Prothrombin Time 11.4 sec (10.0-12.5)
--- NOTE | 2023-10-26 12:15 | P.PN ---
Subjective Progress Note Date: 10/26/23 Reason for Consult (text): Elevated troponins History of present illness: History of present illness: This is a 68-year-old female not currently on any medications. 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 Patient gives history that she had a trip and fall in June 2023 and has had no treatment at that time but injured her shoulder. Her son brought her into the hospital yesterday because they were having difficulty reaching her by phone and when he found her she was confused and dehydrated. Patient states she woke up and found that her left neck was swollen which was new for her. Patient denies having any chest pain. No shortness of breath. Patient is seen today in the emergency center waiting for a bed on the observation unit. She denies any family history of coronary artery disease. She is an active smoker. She denies any alcohol or drug use. EKG sinus rhythm CT chest: Abnormality at the proximal left clavicle with extension into the sternocleidomastoid muscle. Mild dependent atelectasis lung bases. CT soft tissue of the neck revealed a fracture fragments at the medial left clavicle may be pathologic due to osteomyelitis or metastasis. Soft tissue hypodensity extends from the fracture site into the sternocleidomastoid muscle expanding the muscle and extending to the nearly the clavicular level. Abscess and hematoma felt to be most likely within the differential. WBC 27.1, hemoglobin 12. Sodium 135, potassium 3.2, chloride 103, CO2 17, BUN 38 creatinine 1.27. Troponin 0.168 and 0.158. Procalcitonin 62.8. Home cardiac medications: None 10/25 Patient is seen today on the [facility] floor. Patient is less confused today. Echocardiogram reveals EF of 55 to 60%. Blood pressure 148/80, pulse ox 91% on 3 L nasal cannula, heart rate 60s to 90s. Repeat blood work reveals WBC 21, hemoglobin 10.7. Sodium 134, potassium 3.3, creatinine 0.57. Patient's liver function test remain elevated. Physical examination: Gen: This is a disheveled 68-year-old female. No acute distress. VS: reviewed blood pressure 133/75, heart rate 100, pulse ox 92% on 2 L nasal cannula. HEENT: Head is atraumatic, normocephalic. Pupils equal, round. Sclerae is anicteric. NECK: Supple. No JVD. LUNGS: Clear to auscultation. No wheezes or rhonchi. No intercostal retractions. HEART: Regular rate and rhythm. No murmur. ABDOMEN: Soft No tenderness. EXTREMITIES: No pedal edema. No calf tenderness. NEUROLOGICAL: Patient is awake, alert and oriented x3. Assessment: Elevated troponin of unclear significance Leukocytosis Acute kidney injury Left clavicle fracture fragments, pathologic due to osteomyelitis or metastasis Sternocleidomastoid abscess and/or hematoma Plan: No further cardiac workup at this time. Cardiology will sign off this case and follow on an as-needed basis. Please rec onsult for any new concerns. Patient may follow-up in the office in 2 weeks following discharge and may consider doing outpatient stress testing at that time. Nurse practitioner note has been reviewed, I agree with documented findings and plan of care. Patient was seen and examined. Objective - Vital Signs Vital signs: Vital Signs Temp 99.3 F 10/26/23 08:00 Pulse 90 10/26/23 08:00 Resp 19 10/26/23 08:00 BP 148/80 10/26/23 08:00 Pulse Ox 91 L 10/26/23 08:00 FiO2 Intake & Output 10/25/23 10/26/23 10/26/23 18:59 06:59 18:59 Intake Total 240 1490 Output Total 200 300 Balance 40 1190 Intake: Intake, IV Titration 500 Amount Ampicillin-Sulbactam 3 gm 200 In Sodium Chloride 0.9% 100 ml @ 200 mls/hr IVPB Q6HR MICHELLE Rx#:[id number] Cefepime 1 gm In Sodium 50 Chloride 0.9% 50 ml @ 12. 5 mls/hr IVPB Q12HR MICHELLE Rx#:[id number] Vancomycin 1,000 mg In 250 Sodium Chloride 0.9% 250 ml @ 125 mls/hr IVPB Q16H MICHELLE Rx#:[id number] Oral 240 990 Output: Urine 200 300 Other: Voiding Method Diaper Diaper Diaper Incontinent Incontinent Incontinent External Catheter External Catheter External Catheter - Labs CBC & Chem 7: 10/26/23 05:59 10/26/23 05:59 Labs: Abnormal Lab Results - Last 24 Hours (Table) 10/25/23 10/25/23 10/25/23 Range/Units 13:09 13:09 23:26 WBC 24.6 H (3.8-10.6) k/uL RBC (4.10-5.20) X 10*6/uL Hgb (12.0-15.0) g/dL Hct (37.2-46.3) % RDW (11.5-14.5) % MPV (9.5-12.2) FL Immature Gran # (0.00-0.04) X 10*3/uL Neutrophils # 23.1 H (1.3-7.7) k/uL Lymphocytes # 0.9 L (1.0-4.8) k/uL Eosinophils # (0.04-0.35) X 10*3/uL Sodium 134 L (137-145) mmol/L Potassium 3.3 L (3.5-5.1) mmol/L Carbon Dioxide 15 L (22-30) mmol/L BUN 34 H (7-17) mg/dL Glucose 119 H (74-99) mg/dL Calcium (8.4-10.2) mg/dL Total Bilirubin 1.5 H (0.2-1.3) mg/dL AST 117 H (14-36) U/L ALT 43 H (4-34) U/L Alkaline Phosphatase 402 H (38-126) U/L C-Reactive Protein 32.3 H (<1.0) mg/dL Total Protein 5.2 L (6.3-8.2) g/dL Albumin 2.5 L (3.5-5.0) g/dL Procalcitonin (0.02-0.09) ng/mL 10/25/23 10/26/23 10/26/23 Range/Units 23:26 05:59 05:59 WBC 21.14 H (3.8-10.6) k/uL RBC 3.76 L (4.10-5.20) X 10*6/uL Hgb 10.7 L (12.0-15.0) g/dL Hct 32.0 L (37.2-46.3) % RDW 16.2 H (11.5-14.5) % MPV 12.9 H (9.5-12.2) FL Immature Gran # 0.58 H (0.00-0.04) X 10*3/uL Neutrophils # 19.13 H (1.3-7.7) k/uL Lymphocytes # 0.78 L (1.0-4.8) k/uL Eosinophils # 0.03 L (0.04-0.35) X 10*3/uL Sodium 134 L (137-145) mmol/L Potassium 3.3 L (3.5-5.1) mmol/L Carbon Dioxide 17 L (22-30) mmol/L BUN 26 H (7-17) mg/dL Glucose 102 H (74-99) mg/dL Calcium 8.3 L (8.4-10.2) mg/dL Total Bilirubin 2.2 H (0.2-1.3) mg/dL AST 76 H (14-36) U/L ALT 36 H (4-34) U/L Alkaline Phosphatase 404 H (38-126) U/L C-Reactive Protein (<1.0) mg/dL Total Protein 4.9 L (6.3-8.2) g/dL Albumin 2.2 L (3.5-5.0) g/dL Procalcitonin 20.80 H (0.02-0.09) ng/mL
[2023-10-26] MEDS: VANCOMYCIN 1,000 MG in SODIUM CHLORIDE 0.9% 250 ML IVPB SCH (13:57)
[2023-10-26] MEDS: ACETAMINOPHEN TAB 325 MG TAB PO PRN (16:19)
--- NOTE | 2023-10-26 22:32 | P.PN ---
Subjective Progress Note Date: 10/26/23 Principal diagnosis: Left neck/clavicular area abscess/hematoma Patient is a 68-year-old female currently not on any medication apparently tripped and fall in June 2023 and apparently injured her left shoulder, patient has not been brought to the hospital with acute pain and swelling to the left side of the shoulder and the neck area with abnormal CT with evidence of medial left clavicular fracture and hypodensity concerning for possible hematoma versus abscess. On today's evaluation that is 10/26/2023, patient running a low-grade fever of 99.3 F patient pain and swelling to the left side neck is slightly decreased denies any difficulty swallowing no nausea vomiting abdominal pain and no diarrhea. Patient white count is down to 21.14, creatinine 0.57 cultures are pending Objective - Vital Signs Vital signs: Vital Signs Temp 99.3 F 10/26/23 08:00 Pulse 90 10/26/23 08:00 Resp 19 10/26/23 08:00 BP 148/80 10/26/23 08:00 Pulse Ox 91 L 10/26/23 08:00 FiO2 Intake & Output 10/25/23 10/26/23 10/26/23 18:59 06:59 18:59 Intake Total 240 1490 Output Total 200 300 Balance 40 1190 Intake: Intake, IV Titration 500 Amount Ampicillin-Sulbactam 3 gm 200 In Sodium Chloride 0.9% 100 ml @ 200 mls/hr IVPB Q6HR [facility] Rx#:[id number] Cefepime 1 gm In Sodium 50 Chloride 0.9% 50 ml @ 12. 5 mls/hr IVPB Q12HR [facility] Rx#:[id number] Vancomycin 1,000 mg In 250 Sodium Chloride 0.9% 250 ml @ 125 mls/hr IVPB Q16H [facility] Rx#:[id number] Oral 240 990 Output: Urine 200 300 Other: Voiding Method Diaper Diaper Incontinent Incontinent External Catheter External Catheter - Exam GENERAL DESCRIPTION: An elderly female lying in bed in no distress HEENT: Left neck area swelling redness slightly decreased RESPIRATORY SYSTEM: Unlabored breathing , decreased breath sounds at bases HEART: S1 S2 regular rate and rhythm , ABDOMEN: Soft , no tenderness EXTREMITIES: No edema feet - Labs CBC & Chem 7: 10/26/23 05:59 10/26/23 05:59 Labs: Abnormal Lab Results - Last 24 Hours (Table) 10/25/23 10/25/23 10/25/23 Range/Units 13:09 13:09 23:26 WBC 24.6 H (3.8-10.6) k/uL RBC (4.10-5.20) X 10*6/uL Hgb (12.0-15.0) g/dL Hct (37.2-46.3) % RDW (11.5-14.5) % MPV (9.5-12.2) FL Immature Gran # (0.00-0.04) X 10*3/uL Neutrophils # 23.1 H (1.3-7.7) k/uL Lymphocytes # 0.9 L (1.0-4.8) k/uL Eosinophils # (0.04-0.35) X 10*3/uL Sodium 134 L (137-145) mmol/L Potassium 3.3 L (3.5-5.1) mmol/L Carbon Dioxide 15 L (22-30) mmol/L BUN 34 H (7-17) mg/dL Glucose 119 H (74-99) mg/dL Calcium (8.4-10.2) mg/dL Total Bilirubin 1.5 H (0.2-1.3) mg/dL AST 117 H (14-36) U/L ALT 43 H (4-34) U/L Alkaline Phosphatase 402 H (38-126) U/L C-Reactive Protein 32.3 H (<1.0) mg/dL Total Protein 5.2 L (6.3-8.2) g/dL Albumin 2.5 L (3.5-5.0) g/dL Procalcitonin (0.02-0.09) ng/mL 10/25/23 10/26/23 10/26/23 Range/Units 23:26 05:59 05:59 WBC 21.14 H (3.8-10.6) k/uL RBC 3.76 L (4.10-5.20) X 10*6/uL Hgb 10.7 L (12.0-15.0) g/dL Hct 32.0 L (37.2-46.3) % RDW 16.2 H (11.5-14.5) % MPV 12.9 H (9.5-12.2) FL Immature Gran # 0.58 H (0.00-0.04) X 10*3/uL Neutrophils # 19.13 H (1.3-7.7) k/uL Lymphocytes # 0.78 L (1.0-4.8) k/uL Eosinophils # 0.03 L (0.04-0.35) X 10*3/uL Sodium 134 L (137-145) mmol/L Potassium 3.3 L (3.5-5.1) mmol/L Carbon Dioxide 17 L (22-30) mmol/L BUN 26 H (7-17) mg/dL Glucose 102 H (74-99) mg/dL Calcium 8.3 L (8.4-10.2) mg/dL Total Bilirubin 2.2 H (0.2-1.3) mg/dL AST 76 H (14-36) U/L ALT 36 H (4-34) U/L Alkaline Phosphatase 404 H (38-126) U/L C-Reactive Protein (<1.0) mg/dL Total Protein 4.9 L (6.3-8.2) g/dL Albumin 2.2 L (3.5-5.0) g/dL Procalcitonin 20.80 H (0.02-0.09) ng/mL Assessment and Plan (1) Leukocytosis Current Visit: Yes Status: Acute Code(s): D72.829 - ELEVATED WHITE BLOOD CELL COUNT, UNSPECIFIED SNOMED Code(s): 849125037 (2) Abscess Current Visit: Yes Status: Acute Code(s): L02.91 - CUTANEOUS ABSCESS, UNSPECIFIED SNOMED Code(s): 479210259 (3) Neck mass Current Visit: Yes Status: Acute Code(s): R22.1 - LOCALIZED SWELLING, MASS AND LUMP, NECK SNOMED Code(s): 262986261 Plan: 1patient presented to hospital with the left side neck and shoulder area pain and swelling in this patient who did have elevated white count but no fever with a previous history of trauma and question of hematoma and possibly second infected hematoma/abscess not entirely excluded 2-patient would benefit from either surgical versus IR drainage of the area that will help differentiate between hematoma versus abscess as well as obtain specimen for culture currently waiting for Ortho versus IR evaluation and proceeding with a drainage procedure 3-patient to continue with vancomycin and cefepime while waiting for the workup to be completed daughter at the bedside multiple question concern answered Dictation was produced using [employer] dictation software. please excuse any grammatical, word or spelling errors. Time with Patient: Less than 30
--- NOTE | 2023-10-27 09:50 | P.PN ---
Subjective Progress Note Date: 10/27/23 Principal diagnosis: left clavicle mass/pathologic fracture with abscesses or hematoma formation, lasting less likely however Basal atelectasis in the lung Sepsis associated with leukocytosis and elevated inflammatory marker likely source being clavicle Acute kidney injury improved with rehydration Electrolyte imbalance due to hyponatremia on replacement therapy Elevated liver enzyme including alk phos Elevated troponin demand ischemia Complain of diffuse arthralgia and fatigue and pain 10/27/2023, patient seen eval examined during rounds labs reviewed medications reviewed care plan discussed with staff nurse at length, care plan discussed with the family member which his brother present at bedside and explained him at length about diagnostic process and consultation in the process. Patient is not yet evaluated by interventional radiology orthopedics I've asked the nurse to look into it seems they can evaluate the patient as soon as possible, MRI has been ordered by primary service which is scheduled for around 10 a.m. today. Patient is still feeling dryness in the mouth however feels slightly better patient is on clear to full liquid diet advised patient to consume diet as tolerated, patient remains on nystatin as well as started on Diflucanalong with IV Unasyn and vancomycin 68-year-old female seen eval reexamined date of obtained from the daughter present at bedside as well as continued repeated by patient as well. Her daughter describes that patient has a injury of the left sided clavicle around [place] however she didn't seek any medical attention she hurt herself at work again while she was lifting a heavy object at the same time she started having aches and pains all over with diffuse arthralgia tiredness and fatigue and also noted to have a left neck swelling came into the hospital for further evaluation. She had a ECG which was positive for sinus tachycardia, computed tomography scan of theneck and chest revealed abnormality in proximal clavicle with extension into the sternocleidomastoid muscle, mild infiltrate at the bases likely atelectasiscomment is made of pathologic fracture of proximal left clavicle with surrounding soft tissue extension into sternocleidomastoidwith a differential diagnoses of osteomyelitis or metastatic disease, abscess or hematoma. She denies any alcohol use denies any smoking except socially. For last 1 week she is having lots of aches and pain and joint pain and arthralgia she denies any losing weight denies any night sweats or fevers chillsshe is feeling soreness in the mouth with difficulty in swallowingechocardiogram is 55- 60% ejection fractioncurrently she is on bronchodilators with DuoNeb also on Unasyn, Lovenox for DVT prophylaxis and vancomycin, her white cell count is 24 ,000 with hemoglobin hematocrit 11/38 platelet count of 221 sodium is 134 compression 3.3 BUN/creatinine 34/0.71 AST/ALT elevated 117/43 with alk phos of 402, pro calcitonin elevated at 62 troponin is 0.168 Repeat 0.158 cardiovascular services following, initially BUN/creatinine was 38/1.27 improved to almost within normal range now with rehydration Objective - Vital Signs Vital signs: Vital Signs Temp 97.4 F L 10/27/23 07:51 Pulse 82 10/27/23 07:51 Resp 16 10/27/23 07:51 BP 153/77 10/27/23 07:51 Pulse Ox 96 10/27/23 08:41 FiO2 Intake & Output 10/26/23 10/27/23 10/27/23 18:59 06:59 18:59 Intake Total 300 1040 Output Total 600 Balance 300 440 Intake: Intake, IV Titration 100 450 Amount Ampicillin-Sulbactam 3 gm 100 200 In Sodium Chloride 0.9% 100 ml @ 200 mls/hr IVPB Q6HR [facility] Rx#:[id number] Vancomycin 1,000 mg In 250 Sodium Chloride 0.9% 250 ml @ 125 mls/hr IVPB Q12H [facility] Rx#:[id number] Oral 200 590 Output: Urine 600 Other: Voiding Method Diaper Diaper Incontinent Incontinent External Catheter External Catheter # Voids 1 - Exam - Constitutional General appearance: average body habitus, cooperative, disheveled, mild distress - EENT Eyes: EOMI, PERRLA, poor dentition ENT: thrush Ears: bilateral: normal - Neck Neck: normal ROM Carotids: bilateral: upstroke normal Thyroid: bilateral: normal size - Respiratory Respiratory: bilateral: CTA - Cardiovascular Rhythm: regular Heart sounds: normal: S1, S2 - Gastrointestinal General gastrointestinal: decreased bowel sounds, normal bowel sounds, soft - Integumentary Integumentary: normal turgor - Neurologic Neurologic: CNII-XII intact - Musculoskeletal Musculoskeletal: gait normal, generalized weakness, strength equal bilaterally - Psychiatric Psychiatric: A&O x's 3, appropriate affect, intact judgment & insight - Labs CBC & Chem 7: 10/26/23 05:59 10/26/23 05:59 Labs: Microbiology - Last 24 Hours (Table) 10/25/23 23:26 Blood Culture - Preliminary Blood Assessment and Plan Assessment: left clavicle mass/pathologic fracture with abscesses or hematoma formation Basal atelectasis in the lung Sepsis associated with leukocytosis and elevated inflammatory marker likely source being clavicle Acute kidney injury improved with rehydration Electrolyte imbalance due to hyponatremia on replacement therapy Elevated liver enzyme including alk phos Elevated troponin demand ischemia Complain of diffuse arthralgia and fatigue and pain Plan: continue broad-spectrum antibiotics with vancomycin and Unasyn Continue gentle hydration Replace potassium Continue nystatin swish and swallow along with Diflucan Patient awaiting evaluation by interventional radiology for left Clavicle aspiration biopsy and recommendation from orthopedic service Time with Patient: Greater than 30
--- NOTE | 2023-10-27 11:45 | US ---
EXAMINATION TYPE: US biopsy thorax or neck DATE OF EXAM: 10/27/2023 11:36 AM CLINICAL INDICATION:Female, 68 years old with history of left neck aspiration; , [facility] COMPARISON: MRI neck, CT neck 10/27/2019 10/24/2023 prospective. TECHNIQUE: Ultrasound guided fluid aspiration. PROCEDURE: Informed consent was obtained. Risks including bleeding, infection, damage to surrounding structures, and the potential need for further procedures as well as benefits were explained. All patient questi ons were answered. Initial ultrasound images were taken which showed safest access to complex fluid collection in the le ft neck. The patient was prepped and draped. Under sterile technique with 1% lidocaine local anesthe lillian a 18-gauge biopsy device was inserted and 2 samples were taken. The patient tolerated the proced ure well without complication. The patient was transferred to recovery in stable condition. IMPRESSION: Successful ultrasound fluid 18-gauge biopsy of left neck complex suspected fluid collection.
[2023-10-27] MEDS: HYDROcodone/APAP 5-325MG 1 EACH TAB PO PRN (11:57)
--- NOTE | 2023-10-27 12:02 | MR ---
EXAMINATION TYPE: MR neck wo/w con DATE OF EXAM: 10/27/2023 10:54 AM CLINICAL INDICATION:Female, 68 years old with history of pain and weakness; Left sternoclavicular swe lling/mass, Abnormal CT COMPARISON: CT 10/24/2023. TECHNIQUE: Multi planar, multi sequence imaging was performed of the neck soft tissues. MR contrast: IV Contrast: 5.5 cc Gadavist FINDINGS: Nonenhancing tissue extending from the left proximal clavicle in the area of prior fractur e. Fluid collection extends fairly along the sternal cleidomastoid muscle. No internal postcontrast e nhancement identified. The glottis appears unremarkable. Several nonenlarged anterior chain lymph no elmira are identified. There is no evidence to suggest a soft tissue mass. The cervical vertebral bodies have preserved heights and alignment. Multilevel disc desiccation and anterior osteophytosis are present. The cervical spinal cord demonstrates a normal appearance. IMPRESSION: Complex fluid collection extending superiorly from the left clavicle injury along the left sternoclei domastoid muscle favored to represent blood products given patient's history of blood thinners and in jury. There are findings of infection abscess could be considered. Correlate clinically.
[2023-10-27] MEDS: ONDANSETRON 4 MG/2 ML VIAL IVP PRN (14:08)
--- NOTE | 2023-10-27 14:16 | P.CNOR ---
History of Present Illness - [facility] Consult date: 10/27/23 Consult reason: fracture History of present illness: Patient is pleasant 68 yo female seen at bedside today in consultation for clavicle fracture. She states that she fell against a cage in June 2023 injuring her left shoulder. She did not seek care at that time. She states she was lifting mulch about a week or two ago and developed pain in left shoulder. She states she also was experiencing flu like symptoms. She was admitted on 10/24/23 for further eval and treatment CT of neck/chest showed comminuted left proximal clavicle fracture with soft tissue mass/ fluid collection along SCM muscle junction. She continues to have discomfort at the left clavicle SCM. She denies numbness or radicular symptoms. She denies unexplained weight loss. No current fever. No other complaints today Review of Systems All systems: negative Constitutional: Denies chills, Denies fever Eyes: denies blurred vision, denies pain Ears, nose, mouth and throat: Denies headache, Denies sore throat Cardiovascular: Denies chest pain, Denies shortness of breath Respiratory: Denies cough Gastrointestinal: Denies abdominal pain, Denies diarrhea, Denies nausea, Denies vomiting Genitourinary: Denies dysuria, Denies hematuria Musculoskeletal: Denies myalgias Integumentary: Denies pruritus, Denies rash Neurological: Denies numbness, Denies weakness Psychiatric: Denies anxiety, Denies depression Endocrine: Denies fatigue, Denies weight change Past Medical History Past Medical History: No Reported History History of Any Multi-Drug Resistant Organisms: None Reported Past Surgical History: Breast Surgery, Orthopedic Surgery Additional Past Surgical History / Comment(s): ankle surgery, detached retina Past Psychological History: No Psychological Hx Reported Smoking Status: Current some day smoker Past Alcohol Use History: Occasional Past Drug Use History: None Reported - Past Family History Father Family Medical History: Congestive Heart Failure (CHF) Medications and Allergies Home Medications Medication Instructions Recorded Confirmed Type No Known Home Medications 10/24/23 10/24/23 History Allergies Allergy/AdvReac Type Severity Reaction Status Date / Time No Known Allergies Allergy Verified 10/24/23 15:16 Physical Examination Mild edema at left side of neck and clavicle. Pain to palpation: Tender over the clavicle to palpation. Skin is intact. There is a bump deformity consistent with fracture. No tenting of the skin. Patient is not put through full shoulder exam due to recent fracture. Neurovascular status: There is an intact EPL, FPL, extensor indicis, hand intrinsics and the FDP to the small finger. Intact radial, median and ulnar nerve sensations as well as 2+ radial pulse and brisk capillary refill distally. Results - Labs Labs: Microbiology - Last 24 Hours (Table) 10/25/23 23:26 Blood Culture - Preliminary Blood H & H 10/24/23 10/25/23 10/26/23 Range/Units 15:09 13:09 05:59 Hgb 12.0 11.9 10.7 L (11.4-16.0) gm/dL Hct 38.6 38.1 32.0 L (34.0-46.0) % Coagulation 10/26/23 Range/Units 09:23 INR 1.1 (<1.2) Result Diagrams: 10/26/23 05:59 10/26/23 05:59 - Diagnostic results Cervical MRI with contrast: report reviewed, image reviewed CT scan - cervical: report reviewed, image reviewed Assessment and Plan (1) Clavicle fracture, sternal end Narrative/Plan: Patient and her findings have been reviewed with Dr. Johnson. He has recommended that consult for ENT be requested. No other orthopedic intervention at this time. Thank you Current Visit: Yes Status: Acute Priority: Medium Code(s): S42.013A - ANTERIOR DISP FX OF STERNAL END OF UNSP CLAVICLE, INIT SNOMED Code(s): 62064884 (2) Neck mass Current Visit: Yes Status: Acute Priority: Medium Code(s): R22.1 - LOCALIZED SWELLING, MASS AND LUMP, NECK SNOMED Code(s): 215757878 Time with Patient: Less than 30
--- NOTE | 2023-10-27 14:27 | P.PN ---
Subjective Progress Note Date: 10/27/23 * 68-year-old female gives history that she had a trip and fall in June 2023 and has had no treatment at that time but injured her shoulder. Her son brought her into the hospital because they were having difficulty reaching her by phone and when he found her she was confused and dehydrated. Patient states she woke up and found that her left neck was swollen which was new for her. * CT chest: Abnormality at the proximal left clavicle with extension into the sternocleidomastoid muscle. Mild dependent atelectasis lung bases. * CT soft tissue of the neck revealed a fracture fragments at the medial left clavicle may be pathologic due to osteomyelitis or metastasis. Soft tissue hypodensity extends from the fracture site into the sternocleidomastoid muscle expanding the muscle and extending to the nearly the clavicular level. Abscess and hematoma felt to be most likely within the differential. * 10/25 Echocardiogram reveals EF of 55 to 60%. Seen by cardiology and infectious disease and pulmonary medicine * 10/27/23 : Patient seen and evaluated at bedside,MRI completed complex fluid collection noted left clavicle, status post ultrasound-guided aspiration PHYSICAL EXAMINATION: GENERAL: The patient is alert and oriented x3, not in any acute distress. Well developed, well nourished. ill appearance HEENT: Pupils are round and equally reacting to light. EOMI.left supraclavicular swelling CARDIOVASCULAR: S1 and S2 present. No murmurs, rubs, or gallops. PULMONARY: Chest is clear to auscultation, no wheezing or crackles. ABDOMEN: Soft, nontender, nondistended, normoactive bowel sounds. No palpable organomegaly. MUSCULOSKELETAL: No joint swelling or deformity. EXTREMITIES: No cyanosis, clubbing, or pedal edema. NEUROLOGICAL: Gross neurological examination did not reveal any focal deficits. SKIN: No rashes. 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 versus mets * Sternocleidomastoid abscess * Sepsis * Acute kidney injury * Elevated troponin type II IL * Consult obtained from cardiology, infectious disease, pulmonary medicine * Requested IR ultrasound-guided aspiration of left sternocleidomastoid soft tissue density abscess versus hematoma in differential * MRI neck ordered * Consultation obtained from cardiology medical management Objective - Vital Signs Vital signs: Vital Signs Temp 97.4 F L 10/27/23 07:51 Pulse 82 10/27/23 07:51 Resp 16 10/27/23 07:51 BP 153/77 10/27/23 07:51 Pulse Ox 96 10/27/23 08:41 FiO2 Intake & Output 10/26/23 10/27/23 10/27/23 18:59 06:59 18:59 Intake Total 300 1040 Output Total 600 Balance 300 440 Intake: Intake, IV Titration 100 450 Amount Ampicillin-Sulbactam 3 gm 100 200 In Sodium Chloride 0.9% 100 ml @ 200 mls/hr IVPB Q6HR [facility] Rx#:[id number] Vancomycin 1,000 mg In 250 Sodium Chloride 0.9% 250 ml @ 125 mls/hr IVPB Q12H [facility] Rx#:[id number] Oral 200 590 Output: Urine 600 Other: Voiding Method Diaper Diaper Incontinent Incontinent External Catheter External Catheter # Voids 1 - Labs CBC & Chem 7: 10/26/23 05:59 10/26/23 05:59 Labs: Microbiology - Last 24 Hours (Table) 10/25/23 23:26 Blood Culture - Preliminary Blood
[2023-10-27] MEDS: VANCOMYCIN TROUGH DUE 1 EACH MISC MISCELLANE ONE (16:02)
--- NOTE | 2023-10-27 16:14 | P.PN ---
Subjective Progress Note Date: 10/27/23 Principal diagnosis: Left neck/clavicular area abscess/hematoma Patient is a 68-year-old female currently not on any medication apparently tripped and fall in June 2023 and apparently injured her left shoulder, patient has not been brought to the hospital with acute pain and swelling to the left side of the shoulder and the neck area with abnormal CT with evidence of medial left clavicular fracture and hypodensity concerning for possible hematoma versus abscess.Patient did have MRI with evidence of complex fluid collection extending superiorly from the left clavicle along the left sternocleidomastoid muscle and the patient is status post ultrasound-guided a spiration of this fluid by IR unfortunately no culture was done On today's evaluation that is 10/27/2023,the patient denies any fever or any chills, patient is breathing comfortably on room air, the patient denies chest pain shortness of breath and no significant cough, patient denies abdominal mandeep n, complaining of some nausea but no vomiting pain to the left side of the neck has decreased in intensity. INR is 1.1 no other lab has been drawn today Objective - Vital Signs Vital signs: Vital Signs Temp 97.4 F L 10/27/23 07:51 Pulse 82 10/27/23 07:51 Resp 16 10/27/23 07:51 BP 153/77 10/27/23 07:51 Pulse Ox 97 10/27/23 07:51 FiO2 Intake & Output 10/26/23 10/27/23 10/27/23 18:59 06:59 18:59 Intake Total 300 1040 Output Total 600 Balance 300 440 Intake: Intake, IV Titration 100 450 Amount Ampicillin-Sulbactam 3 gm 100 200 In Sodium Chloride 0.9% 100 ml @ 200 mls/hr IVPB Q6HR [facility] Rx#:[id number] Vancomycin 1,000 mg In 250 Sodium Chloride 0.9% 250 ml @ 125 mls/hr IVPB Q12H [facility] Rx#:[id number] Oral 200 590 Output: Urine 600 Other: Voiding Method Diaper Diaper Incontinent Incontinent External Catheter External Catheter # Voids 1 - Exam GENERAL DESCRIPTION: An elderly female lying in bed in no distress HEENT: Left neck area swelling redness slightly decreased RESPIRATORY SYSTEM: Unlabored breathing , decreased breath sounds at bases HEART: S1 S2 regular rate and rhythm , ABDOMEN: Soft , no tenderness EXTREMITIES: No edema feet - Labs CBC & Chem 7: 10/26/23 05:59 10/26/23 05:59 Labs: Abnormal Lab Results - Last 24 Hours (Table) 10/26/23 Range/Units 05:59 WBC 21.14 H (4.50-10.00) X 10*3/uL RBC 3.76 L (4.10-5.20) X 10*6/uL Hgb 10.7 L (12.0-15.0) g/dL Hct 32.0 L (37.2-46.3) % RDW 16.2 H (11.5-14.5) % MPV 12.9 H (9.5-12.2) FL Immature Gran # 0.58 H (0.00-0.04) X 10*3/uL Neutrophils # 19.13 H (1.80-7.70) X 10*3/uL Lymphocytes # 0.78 L (0.90-5.00) X 10*3/uL Eosinophils # 0.03 L (0.04-0.35) X 10*3/uL Microbiology - Last 24 Hours (Table) 10/25/23 23:26 Blood Culture - Preliminary Blood Assessment and Plan (1) Leukocytosis Current Visit: Yes Status: Acute Code(s): D72.829 - ELEVATED WHITE BLOOD CELL COUNT, UNSPECIFIED SNOMED Code(s): 585900190 (2) Abscess Current Visit: Yes Status: Acute Code(s): L02.91 - CUTANEOUS ABSCESS, UNSPECIFIED SNOMED Code(s): 891905741 (3) Neck mass Current Visit: Yes Status: Acute Priority: Medium Code(s): R22.1 - LOCALIZED SWELLING, MASS AND LUMP, NECK SNOMED Code(s): 725703414 Plan: 1patient presented to hospital with the left side neck and shoulder area pain and swelling in this patient who did have elevated white count but no fever with a previous history of trauma and question of hematoma and possibly second infected hematoma/abscess not entirely excluded 2-patient has been evaluated by ENT recommended orthopedics for evaluation and drainage orthopedics has seen the patient wanted ENT due to the drainage patient did have a ultrasound-guided aspiration of the area but IR did not send any fluid for culture 3-if no one is doing any drainage of this area patient better to be transferred to tertiary care for now continue with the cefepime and vancomycin Dictation was produced using [employer] dictation software. please excuse any grammatical, word or spelling errors. Time with Patient: Less than 30
[2023-10-27 17:36] LABS: African American GFR (CKD) >90 (>60 ml/min/1.73 sqM); Non-African American GFR(CKD) >90 (>60 ml/min/1.73 sqM)
[2023-10-27] MEDS: SODIUM CHLORIDE 0.9% 1,000 ML IV SCH (20:48)
[2023-10-28 05:10] LABS: African American GFR (CKD) >90 (>60 ml/min/1.73 sqM); Anion Gap 8 mmol/L; Blood Urea Nitrogen 23 mg/dL (7-17); Calcium 8.2 mg/dL (8.4-10.2); Carbon Dioxide 22 mmol/L (22-30); Chloride 108 mmol/L (98-107); Glucose 99 mg/dL (74-99); Non-African American GFR(CKD) >90 (>60 ml/min/1.73 sqM); Potassium 3.8 mmol/L (3.5-5.1); Sodium 138 mmol/L (137-145)
--- NOTE | 2023-10-28 09:38 | P.PN ---
Subjective Progress Note Date: 10/28/23 Principal diagnosis: left clavicle mass/pathologic fracture with abscesses or hematoma formation, lasting less likely however Basal atelectasis in the lung Sepsis associated with leukocytosis and elevated inflammatory marker likely source being clavicle Acute kidney injury improved with rehydration Electrolyte imbalance due to hyponatremia on replacement therapy Elevated liver enzyme including alk phos Elevated troponin demand ischemia Complain of diffuse arthralgia and fatigue and pain 10/28/2023, patient seen eval examined the rounds patient remains on broad-spectrum antibiotics as well as bronchodilators, has been on DVT prophylaxis as well, appetite has been poor patient encouraged to take by mouthpatient underwent MRI of the neck,neck mass Biopsy yesterday. MRI revealed complex fluid collection extending superiorly from left clavicle up to sternocleidomastoid with a differential-like process of abscess versus hematomapatient underwent successful ultrasound-guided biopsy of left neck complex fluid collection cellblock pending 10/27/2023, patient seen eval examined during rounds labs reviewed medications reviewed care plan discussed with staff nurse at length, care plan discussed with the family member which his brother present at bedside and explained him at length about diagnostic process and consultation in the process. Patient is not yet evaluated by interventional radiology orthopedics I've asked the nurse to look into it seems they can evaluate the patient as soon as possible, MRI has been ordered by primary service which is scheduled for around 10 a.m. today. Patient is still feeling dryness in the mouth however feels slightly better patient is on clear to full liquid diet advised patient to consume diet as tolerated, patient remains on nystatin as well as started on Diflucanalong with IV Unasyn and vancomycin 68-year-old female seen eval reexamined date of obtained from the daughter present at bedside as well as continued repeated by patient as well. Her daughter describes that patient has a injury of the left sided clavicle around [place] however she didn't seek any medical attention she hurt herself at work again while she was lifting a heavy object at the same time she started having aches and pains all over with diffuse arthralgia tiredness and fatigue and also noted to have a left neck swelling came into the hospital for further evaluation. She had a ECG which was positive for sinus tachycardia, computed tomography scan of theneck and chest revealed abnormality in proximal clavicle with extension into the sternocleidomastoid muscle, mild infiltrate at the bases likely atelectasiscomment is made of pathologic fracture of proximal left clavicle with surrounding soft tissue extension into sternocleidomastoidwith a differential diagnoses of osteomyelitis or metastatic disease, abscess or hematoma. She denies any alcohol use denies any smoking except socially. For last 1 week she is having lots of aches and pain and joint pain and arthralgia she denies any losing weight denies any night sweats or fevers chillsshe is feeling soreness in the mouth with difficulty in swallowingechocardiogram is 55- 60% ejection fractioncurrently she is on bronchodilators with DuoNeb also on Unasyn, Lovenox for DVT prophylaxis and vancomycin, her white cell count is 24,000 with hemoglobin hematocrit 11/38 platelet count of 221 sodium is 134 compression 3.3 BUN/creatinine 34/0.71 AST/ALT elevated 117/43 with alk phos of 402, pro calcitonin elevated at 62 troponin is 0.168 Repeat 0.158 cardiovascular services following, initially BUN/creatinine was 38/1.27 improved to almost within normal range now with rehydration Objective - Vital Signs Vital signs: Vital Signs Temp 97.9 F 10/28/23 07:27 Pulse 82 10/28/23 07:27 Resp 16 10/28/23 07:27 BP 138/76 10/28/23 07:27 Pulse Ox 95 10/28/23 08:43 FiO2 Intake & Output 10/27/23 10/28/23 10/28/23 18:59 06:59 18:59 Intake Total 250 1050 Output Total 625 Balance 250 425 Intake: Intake, IV Titration 250 1050 Amount Ampicillin-Sulbactam 3 gm 200 In Sodium Chloride 0.9% 100 ml @ 200 mls/hr IVPB Q6HR [facility] Rx#:[id number] Sodium Chloride 0.9% 1, 600 000 ml @ 75 mls/hr IV . [id number] [facility] Rx#:[id number] Vancomycin 1,000 mg In 250 250 Sodium Chloride 0.9% 250 ml @ 125 mls/hr IVPB Q12H [facility] Rx#:[id number] Output: Urine 625 Other: Voiding Method Diaper Diaper Incontinent Incontinent External Catheter External Catheter - Exam - Constitutional General appearance: average body habitus, cooperative, disheveled, mild distress - EENT Eyes: EOMI, PERRLA, poor dentition ENT: thrush Ears: bilateral: normal - Neck Neck: normal ROM Carotids: bilateral: upstroke normal Thyroid: bilateral: normal size - Respiratory Respiratory: bilateral: CTA - Cardiovascular Rhythm: regular Heart sounds: normal: S1, S2 - Gastrointestinal General gastrointestinal: decreased bowel sounds, normal bowel sounds, soft - Integumentary Integumentary: normal turgor - Neurologic Neurologic: CNII-XII intact - Musculoskeletal Musculoskeletal: gait normal, generalized weakness, strength equal bilaterally - Psychiatric Psychiatric: A&O x's 3, appropriate affect, intact judgment & insight - Labs CBC & Chem 7: 10/26/23 05:59 10/28/23 04:18 Labs: Abnormal Lab Results - Last 24 Hours (Table) 10/27/23 10/28/23 Range/Units 16:41 04:18 Chloride 108 H (98-107) mmol/L BUN 23 H (7-17) mg/dL Creatinine 0.47 L 0.41 L (0.52-1.04) mg/dL Calcium 8.2 L (8.4-10.2) mg/dL C-Reactive Protein 17.0 H (<1.0) mg/dL Microbiology - Last 24 Hours (Table) 10/25/23 23:26 Blood Culture - Preliminary Blood Assessment and Plan Assessment: left clavicle mass/pathologic fracture with abscesses or hematoma formation Basal atelectasis in the lung Sepsis associated with leukocytosis and elevated inflammatory marker likely source being clavicle Acute kidney injury improved with rehydration Electrolyte imbalance due to hyponatremia on replacement therapy Elevated liver enzyme including alk phos Elevated troponin demand ischemia Complain of diffuse arthralgia and fatigue and pain Plan: continue broad-spectrum antibiotics with vancomycin and Unasyn Follow-up on the Gram stain and culture and cell block Continue gentle hydration Replace potassium Continue nystatin swish and swallow along with Diflucan Patient awaiting evaluation by interventional radiology for left Clavicle aspiration biopsy and recommendation from orthopedic service Time with Patient: Greater than 30
--- NOTE | 2023-10-28 09:48 | US ---
EXAMINATION TYPE: US guided soft tissue drainage DATE OF EXAM: 10/27/2023 COMPARISON: MRI same day HISTORY: 68-year-old female with history of prior left clavicle fracture with recent reinjury. Promin ent soft tissue swelling and pain. Tissue biopsy performed earlier in the day. Referred for fluid asp iration. The procedure was discussed with the patient. The risks, complications, benefits, and alternatives we re discussed and any questions were answered. Informed consent was obtained. The patient was position ed supine, head and chest approximately 30 degrees in the inpatient bed. The left side of the neck wa s prepped and draped in the usual sterile fashion. All elements of maximal barrier technique were utilized. Ultrasound was utilized and demonstrated the abnormal heterogeneous collection extending along the le ngth of the mid and lower left sternocleidomastoid muscle. This was targeted from an oblique inferior approach. The skin was marked. Under direct ultrasound guidance, a 5 Russian One-Step catheter and trocar technique was utilized to s ituate the catheter along the length of the abnormal collection. Aspiration yielded a total of 17 mL blood-tinged purulent-appearing fluid. The abnormal collection significantly diminished following aspiration. Catheter was removed, hemostas is obtained, and a bandage placed. The patient was stable throughout the procedure and remained. The patient's nurse took over care foll owing the procedure. IMPRESSION: Successful aspiration of the abnormal collection along the length of the left sternocleidomastoid mus jose f. 17 mL of blood-tinged, purulent-appearing fluid was removed. The collection significantly dimini shed following aspiration. Cell count with differential, Gram stain, and microbiology pending.
[2023-10-28 10:01] LABS: HCT 32.6 % (37.2-46.3); HGB 10.2 g/dL (12.0-15.0); MCH 28.3 pg (27.0-32.0); MCHC 31.3 g/dL (32.0-37.0); MCV 90.6 FL (80.0-97.0); Mean Platelet Volume 13.7 FL (9.5-12.2); NRBC Per 100 WBC 0 X 10*3/uL (0.00-0.01); Platelet Count 249 X 10*3/uL (140-440); RDW 16.8 % (11.5-14.5); WBC 22.17 X 10*3/uL (4.50-10.00)
[2023-10-28] MEDS ORDERED: ACETAMINOPHEN IV (For NPO) 1,000 MG in EMPTY BAG 1 BAG IVPB PRN (13:28)
--- NOTE | 2023-10-28 13:29 | P.PN ---
Subjective Progress Note Date: 10/28/23 * 68-year-old female gives history that she had a trip and fall in June 2023 and has had no treatment at that time but injured her shoulder. Her son brought her into the hospital because they were having difficulty reaching her by phone and when he found her she was confused and dehydrated. Patient states she woke up and found that her left neck was swollen which was new for her. * CT chest: Abnormality at the proximal left clavicle with extension into the sternocleidomastoid muscle. Mild dependent atelectasis lung bases. * CT soft tissue of the neck revealed a fracture fragments at the medial left clavicle may be pathologic due to osteomyelitis or metastasis. Soft tissue hypodensity extends from the fracture site into the sternocleidomastoid muscle expanding the muscle and extending to the nearly the clavicular level. Abscess and hematoma felt to be most likely within the differential. * 10/25 Echocardiogram reveals EF of 55 to 60%. Seen by cardiology and infectious disease and pulmonary medicine * 10/27/23 : Patient seen and evaluated at bedside,MRI completed complex fluid collection noted left clavicle, status post ultrasound-guided aspiration * 10/28/23 : patient seen and evaluated bedside, vitals reviewed patient remains on 3 L of oxygen. CBC showed WBC 22, hemoglobin 10.2, serum chemistry showed CRP trending down from 32>> 17. patient is status post ultrasound-guided aspir ation of left sternocleidomastoid muscle blood-tinged pleural fluid removed sent forGram stain and culture.. Patient does complain of myalgias and arthralgias PHYSICAL EXAMINATION: GENERAL: The patient is alert and oriented x3, not in any acute distress. Well developed, well nourished. ill appearance HEENT: Pupils are round and equally reacting to light. EOMI.left supraclavicular swelling CARDIOVASCULAR: S1 and S2 present. No murmurs, rubs, or gallops. PULMONARY: Chest is clear to auscultation, no wheezing or crackles. ABDOMEN: Soft, nontender, nondistended, normoactive bowel sounds. No palpable organomegaly. MUSCULOSKELETAL: No joint swelling or deformity. EXTREMITIES: No cyanosis, clubbing, or pedal edema. NEUROLOGICAL: Gross neurological examination did not reveal any focal deficits. SKIN: No rashes. 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 * Sternocleidomastoid abscess * Sepsis * Acute kidney injury * Elevated troponin type II MN * Consult obtained from cardiology, infectious disease, pulmonary medicine * IR ultrasound-guided aspiration of left sternocleidomastoid soft tissue density abscess 10/26, cultures ordered * MRI neck shows complex fluid collection in the left lower vehicle injury, left sternocleidomastoid muscle likely abscess * in regards to elevated troponin medical management recommended by cardiology Objective - Vital Signs Vital signs: Vital Signs Temp 97.9 F 10/28/23 07:27 Pulse 82 10/28/23 07:27 Resp 16 10/28/23 07:27 BP 138/76 10/28/23 07:27 Pulse Ox 95 10/28/23 08:43 FiO2 Intake & Output 10/27/23 10/28/23 10/28/23 18:59 06:59 18:59 Intake Total 250 1050 Output Total 625 Balance 250 425 Intake: Intake, IV Titration 250 1050 Amount Ampicillin-Sulbactam 3 gm 200 In Sodium Chloride 0.9% 100 ml @ 200 mls/hr IVPB Q6HR [facility] Rx#:[id number] Sodium Chloride 0.9% 1, 600 000 ml @ 75 mls/hr IV . [id number] [facility] Rx#:[id number] Vancomycin 1,000 mg In 250 250 Sodium Chloride 0.9% 250 ml @ 125 mls/hr IVPB Q12H [facility] Rx#:[id number] Output: Urine 625 Other: Voiding Method Diaper Diaper Incontinent Incontinent External Catheter External Catheter - Labs CBC & Chem 7: 10/28/23 04:18 10/28/23 04:18 Labs: Abnormal Lab Results - Last 24 Hours (Table) 10/27/23 10/28/23 10/28/23 Range/Units 16:41 04:18 04:18 WBC 22.17 H (4.50-10.00) X 10*3/uL RBC 3.60 L (4.10-5.20) X 10*6/uL Hgb 10.2 L (12.0-15.0) g/dL Hct 32.6 L (37.2-46.3) % MCHC 31.3 L (32.0-37.0) g/dL RDW 16.8 H (11.5-14.5) % MPV 13.7 H (9.5-12.2) FL Chloride 108 H (98-107) mmol/L BUN 23 H (7-17) mg/dL Creatinine 0.47 L 0.41 L (0.52-1.04) mg/dL Calcium 8.2 L (8.4-10.2) mg/dL C-Reactive Protein 17.0 H (<1.0) mg/dL Microbiology - Last 24 Hours (Table) 10/25/23 23:26 Blood Culture - Preliminary Blood
[2023-10-28] MEDS: VANCOMYCIN TROUGH DUE 1 EACH MISC MISCELLANE ONE (13:47)
[2023-10-28] MEDS: KETOROLAC 15 MG/ML 1 ML VIAL IVP PRN (22:26)
--- NOTE | 2023-10-28 22:58 | P.PN ---
Subjective Progress Note Date: 10/28/23 Principal diagnosis: Left neck/clavicular area abscess/hematoma Patient is a 68-year-old female currently not on any medication apparently tripped and fall in June 2023 and apparently injured her left shoulder, patient has not been brought to the hospital with acute pain and swelling to the left side of the shoulder and the neck area with abnormal CT with evidence of medial left clavicular fracture and hypodensity concerning for possible hematoma versus abscess.Patient did have MRI with evidence of complex fluid collection extending superiorly from the left clavicle along the left sternocleidomastoid muscle and the patient is status post ultrasound-guided a spiration of this fluid by IR unfortunately no culture was done , Subsequently case has been discussed in detail with the IR and they are able to do culture evening of 10/27/2023 On today's evaluation that is 10/28/2023,the patient did have a low-grade fever of 99.9 F this afternoon patient is breathing comfortably on room air did have some nausea but no vomiting pain to the left neck has decreased in intensity, no diarrhea or any other changes reported. Patient white count is 22.17, creatinine 0.41 Vanco trough has been in the low side cultures currently pending Objective - Vital Signs Vital signs: Vital Signs Temp 97.9 F 10/28/23 07:27 Pulse 82 10/28/23 07:27 Resp 16 10/28/23 07:27 BP 138/76 10/28/23 07:27 Pulse Ox 95 10/28/23 08:43 FiO2 Intake & Output 10/27/23 10/28/23 10/28/23 18:59 06:59 18:59 Intake Total 250 1050 Output Total 625 Balance 250 425 Intake: Intake, IV Titration 250 1050 Amount Ampicillin-Sulbactam 3 gm 200 In Sodium Chloride 0.9% 100 ml @ 200 mls/hr IVPB Q6HR [facility] Rx#:[id number] Sodium Chloride 0.9% 1, 600 000 ml @ 75 mls/hr IV . [id number] [facility] Rx#:[id number] Vancomycin 1,000 mg In 250 250 Sodium Chloride 0.9% 250 ml @ 125 mls/hr IVPB Q12H [facility] Rx#:[id number] Output: Urine 625 Other: Voiding Method Diaper Diaper Incontinent Incontinent External Catheter External Catheter - Exam GENERAL DESCRIPTION: An elderly female lying in bed in no distress HEENT: Left neck area swelling redness slightly decreased RESPIRATORY SYSTEM: Unlabored breathing , decreased breath sounds at bases HEART: S1 S2 regular rate and rhythm , ABDOMEN: Soft , no tenderness EXTREMITIES: No edema feet Exam completed with the help of MATERIAL COORDINATOR - Labs CBC & Chem 7: 10/28/23 04:18 10/28/23 04:18 Labs: Abnormal Lab Results - Last 24 Hours (Table) 10/27/23 10/28/23 10/28/23 Range/Units 16:41 04:18 04:18 WBC 22.17 H (4.50-10.00) X 10*3/uL RBC 3.60 L (4.10-5.20) X 10*6/uL Hgb 10.2 L (12.0-15.0) g/dL Hct 32.6 L (37.2-46.3) % MCHC 31.3 L (32.0-37.0) g/dL RDW 16.8 H (11.5-14.5) % MPV 13.7 H (9.5-12.2) FL Chloride 108 H (98-107) mmol/L BUN 23 H (7-17) mg/dL Creatinine 0.47 L 0.41 L (0.52-1.04) mg/dL Calcium 8.2 L (8.4-10.2) mg/dL C-Reactive Protein 17.0 H (<1.0) mg/dL Microbiology - Last 24 Hours (Table) 10/25/23 23:26 Blood Culture - Preliminary Blood Assessment and Plan (1) Leukocytosis Current Visit: Yes Status: Acute Code(s): D72.829 - ELEVATED WHITE BLOOD CELL COUNT, UNSPECIFIED SNOMED Code(s): 887454590 (2) Abscess Current Visit: Yes Status: Acute Code(s): L02.91 - CUTANEOUS ABSCESS, UNSPECIFIED SNOMED Code(s): 444778567 (3) Neck mass Current Visit: Yes Status: Acute Priority: Medium Code(s): R22.1 - LOCALIZED SWELLING, MASS AND LUMP, NECK SNOMED Code(s): 726224915 Plan: 1patient presented to hospital with the left side neck and shoulder area pain and swelling in this patient who did have elevated white count but no fever with a previous history of trauma and question of hematoma and possibly second infected hematoma/abscess not entirely excluded 2-patient has been evaluated by ENT recommended orthopedics for evaluation and drainage orthopedics has seen the patient wanted ENT due to the drainage patient did have a ultrasound-guided aspiration of the area but IR did not send any fluid for culture subsequently after discussion with the IR repeat procedure was done and cultures were obtained which are currently pending 3-patient to continue with the Unasyn and vancomycin while waiting for the culture to finalize Dictation was produced using [employer] dictation software. please excuse any grammatical, word or spelling errors.
[2023-10-29] MEDS: VANCOMYCIN 1,250 MG in SODIUM CHLORIDE 0.9% 250 ML IVPB SCH (03:43)
[2023-10-29] MEDS: HYDROcodone/APAP 5-325MG 1 EACH TAB PO PRN (03:48)
[2023-10-29 07:01] LABS: African American GFR (CKD) >90 (>60 ml/min/1.73 sqM); Anion Gap 1 mmol/L; Blood Urea Nitrogen 17 mg/dL (7-17); Calcium 7.6 mg/dL (8.4-10.2); Carbon Dioxide 26 mmol/L (22-30); Chloride 107 mmol/L (98-107); Glucose 122 mg/dL (74-99); Non-African American GFR(CKD) >90 (>60 ml/min/1.73 sqM); Potassium 3.1 mmol/L (3.5-5.1); Sodium 134 mmol/L (137-145)
[2023-10-29 07:21] LABS: C Reactive Protein 12.4 mg/dL (<1.0)
--- NOTE | 2023-10-29 09:07 | P.PN ---
Subjective Progress Note Date: 10/29/23 Principal diagnosis: left clavicle mass/pathologic fracture with abscesses or hematoma formation, lasting less likely however Basal atelectasis in the lung Sepsis associated with leukocytosis and elevated inflammatory marker likely source being clavicle Acute kidney injury improved with rehydration Electrolyte imbalance due to hyponatremia on replacement therapy Elevated liver enzyme including alk phos Elevated troponin demand ischemia Complain of diffuse arthralgia and fatigue and pain 10/28/2023, patient seen and evaluated examined during the rounds, patient remains on the bronchodilators IV steroids DVT prophylaxis as well as Diflucan and vancomycinpatient on 3 L oxygen saturation is 97% remains afebrile, labs from today reviewed sodium 134 potassium 3.1. Continue with the normal limit glucose 122 vancomycin levels 9.1culture revealed many WBCs few gram-positive coccifinal results are pending, cell block and core biopsy results pending is still 10/28/2023, patient seen eval examined the rounds patient remains on broad- spectrum antibiotics as well as bronchodilators, has been on DVT prophylaxis as well, appetite has been poor patient encouraged to take by mouthpatient underwent MRI of the neck,neck mass Biopsy yesterday. MRI revealed complex fluid collection extending superiorly from left clavicle up to sternocleidomastoid with a differential-like process of abscess versus hematomapatient underwent successful ultrasound-guided biopsy of left neck complex fluid collection cellblock pending 10/27/2023, patient seen eval examined during rounds labs reviewed medications reviewed care plan discussed with staff nurse at length, care plan discussed with the family member which his brother present at bedside and explained him at length about diagnostic process and consultation in the process. Patient is not yet evaluated by interventional radiology orthopedics I've asked the nurse to look into it seems they can evaluate the patient as soon as possible, MRI has been ordered by primary service which is scheduled for around 10 a.m. today. P atient is still feeling dryness in the mouth however feels slightly better patient is on clear to full liquid diet advised patient to consume diet as tolerated, patient remains on nystatin as well as started on Diflucanalong with IV Unasyn and vancomycin 68-year-old female seen eval reexamined date of obtained from the daughter present at bedside as well as continued repeated by patient as well. Her daughter describes that patient has a injury of the left sided clavicle around [place] however she didn't seek any medical attention she hurt herself at work again while she was lifting a heavy object at the same time she started having aches and pains all over with diffuse arthralgia tiredness and fatigue and also noted to have a left neck swelling came into the hospital for further evalua tion. She had a ECG which was positive for sinus tachycardia, computed tomography scan of theneck and chest revealed abnormality in proximal clavicle with extension into the sternocleidomastoid muscle, mild infiltrate at the bases likely atelectasiscomment is made of pathologic fracture of proximal left clavicle with surrounding soft tissue extension into sternocleidomastoidwith a differential diagnoses of osteomyelitis or metastatic disease, abscess or hematoma. She denies any alcohol use denies any smoking except socially. For last 1 week she is having lots of aches and pain and joint pain and arthralgia she denies any losing weight denies any night sweats or fevers chillsshe is feeling soreness in the mouth with difficulty in swallowingechocardiogram is 55- 60% ejection fractioncurrently she is on bronchodilators with DuoNeb also on Unasyn, Lovenox for DVT prophylaxis and vancomycin, her white cell count is 24,000 with hemoglobin hematocrit 11/38 platelet count of 221 sodium is 134 compression 3.3 BUN/creatinine 34/0.71 AST/ALT elevated 117/43 with alk phos of 402, pro calcitonin elevated at 62 troponin is 0.168 Repeat 0.158 cardiovascular services following, initially BUN/creatinine was 38/1.27 improved to almost within normal range now with rehydration Objective - Vital Signs Vital signs: Vital Signs Temp 98 F 10/29/23 06:59 Pulse 70 10/29/23 06:59 Resp 17 10/29/23 06:59 BP 146/70 10/29/23 06:59 Pulse Ox 97 10/29/23 08:12 FiO2 Intake & Output 10/28/23 10/29/23 10/29/23 18:59 06:59 18:59 Intake Total 300 Balance 300 Intake: Oral 300 Other: Voiding Method Diaper Diaper Bedside Commode Incontinent Incontinent Diaper Incontinent # Voids 1 2 - Exam - Constitutional General appearance: average body habitus, cooperative, disheveled, mild distress - EENT Eyes: EOMI, PERRLA, poor dentition ENT: thrush Ears: bilateral: normal - Neck Neck: normal ROM Carotids: bilateral: upstroke normal Thyroid: bilateral: normal size - Respiratory Respiratory: bilateral: CTA - Cardiovascular Rhythm: regular Heart sounds: normal: S1, S2 - Gastrointestinal General gastrointestinal: decreased bowel sounds, normal bowel sounds, soft - Integumentary Integumentary: normal turgor - Neurologic Neurologic: CNII-XII intact - Musculoskeletal Musculoskeletal: gait normal, generalized weakness, strength equal bilaterally - Psychiatric Psychiatric: A&O x's 3, appropriate affect, intact judgment & insight - Labs CBC & Chem 7: 10/28/23 04:18 10/29/23 06:02 Labs: Abnormal Lab Results - Last 24 Hours (Table) 10/28/23 10/29/23 Range/Units 04:18 06:02 WBC 22.17 H (4.50-10.00) X 10*3/uL RBC 3.60 L (4.10-5.20) X 10*6/uL Hgb 10.2 L (12.0-15.0) g/dL Hct 32.6 L (37.2-46.3) % MCHC 31.3 L (32.0-37.0) g/dL RDW 16.8 H (11.5-14.5) % MPV 13.7 H (9.5-12.2) FL Sodium 134 L (137-145) mmol/L Potassium 3.1 L (3.5-5.1) mmol/L Creatinine 0.42 L (0.52-1.04) mg/dL Glucose 122 H (74-99) mg/dL Calcium 7.6 L (8.4-10.2) mg/dL C-Reactive Protein 12.4 H (<1.0) mg/dL Microbiology - Last 24 Hours (Table) 10/25/23 23:26 Blood Culture - Preliminary Blood 10/27/23 18:53 Gram Stain - Preliminary Other - Other Wound Culture - Preliminary Assessment and Plan Assessment: left clavicle mass/pathologic fracture with abscesses or hematoma formation, wound aspiration revealed gram-positive cocci many WBCs on Gram stain and culture final however is pending cell block spent Basal atelectasis in the lung Sepsis associated with leukocytosis and elevated inflammatory marker likely source being clavicle Acute kidney injury improved with rehydration Electrolyte imbalance due to hyponatremia on replacement therapy Elevated liver enzyme including alk phos Elevated troponin demand ischemia Complain of diffuse arthralgia and fatigue and pain Plan: continue broad-spectrum antibiotics with vancomycin and Unasyn Follow-up on the culture and cell block Continue gentle hydration Replace potassium Continue nystatin swish and swallow along with Diflucan Patient awaiting evaluation by interventional radiology for left Clavicle aspiration biopsy and recommendation from orthopedic service Time with Patient: Greater than 30
[2023-10-29 09:24] LABS: HCT 27.8 % (37.2-46.3); HGB 8.9 g/dL (12.0-15.0); MCH 28.9 pg (27.0-32.0); MCV 90.3 FL (80.0-97.0); Mean Platelet Volume 14.1 FL (9.5-12.2); NRBC Per 100 WBC 0 X 10*3/uL (0.00-0.01); Platelet Count 224 X 10*3/uL (140-440); RBC 3.08 X 10*6/uL (4.10-5.20); RDW 16.4 % (11.5-14.5); WBC 13.81 X 10*3/uL (4.50-10.00)
[2023-10-29] MEDS: POTASSIUM CHLORIDE 10 MEQ in WATER FOR INJECTION 1 100ML.BAG IVPB SCH (10:28)
[2023-10-29] MEDS: POTASSIUM CHLORIDE ER 20 MEQ TAB.ER PO SCH (10:37)
--- NOTE | 2023-10-29 12:00 | P.PN ---
Subjective Progress Note Date: 10/29/23 * 68-year-old female gives history that she had a trip and fall in June 2023 and has had no treatment at that time but injured her shoulder. Her son brought her into the hospital because they were having difficulty reaching her by phone and when he found her she was confused and dehydrated. Patient states she woke up and found that her left neck was swollen which was new for her. * CT chest: Abnormality at the proximal left clavicle with extension into the sternocleidomastoid muscle. Mild dependent atelectasis lung bases. * CT soft tissue of the neck revealed a fracture fragments at the medial left clavicle may be pathologic due to osteomyelitis or metastasis. Soft tissue hypodensity extends from the fracture site into the sternocleidomastoid muscle expanding the muscle and extending to the nearly the clavicular level. Abscess and hematoma felt to be most likely within the differential. * 10/25 Echocardiogram reveals EF of 55 to 60%. Seen by cardiology and infectious disease and pulmonary medicine * 10/27/23 : Patient seen and evaluated at bedside,MRI completed complex fluid collection noted left clavicle, status post ultrasound-guided aspiration * 10/28/23 : patient seen and evaluated bedside, vitals reviewed patient remains on 3 L of oxygen. CBC showed WBC 22, hemoglobin 10.2, serum chemistry showed CRP trending down from 32>> 17. patient is status post ultrasound-guided aspir ation of left sternocleidomastoid muscle blood-tinged pleural fluid removed sent forGram stain and culture.. Patient does complain of myalgias and arthralgias * 10/29/23: Patient seen and evaluated bedside, potassium reviewed and replaced, follow-up on cultures, continue IV antibiotics, continue with pain control does complain of myalgias appears ill, follow-up on CBC and basic metabolic panel. CRP trending down from 17 to 12 PHYSICAL EXAMINATION: GENERAL: The patient is alert and oriented x3, not in any acute distress. Well developed, well nourished. ill appearance HEENT: Pupils are round and equally reacting to light. EOMI.left supraclavicular swelling CARDIOVASCULAR: S1 and S2 present. No murmurs, rubs, or gallops. PULMONARY: Chest is clear to auscultation, no wheezing or crackles. ABDOMEN: Soft, nontender, nondistended, normoactive bowel sounds. No palpable organomegaly. MUSCULOSKELETAL: No joint swelling or deformity. EXTREMITIES: No cyanosis, clubbing, or pedal edema. NEUROLOGICAL: Gross neurological examination did not reveal any focal deficits. SKIN: No rashes. 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 * Sternocleidomastoid abscess * Sepsis * Acute kidney injury * Elevated troponin type II SD * Consult obtained from cardiology, infectious disease, pulmonary medicine * IR ultrasound-guided aspiration of left sternocleidomastoid soft tissue density abscess 10/26, cultures ordered * MRI neck shows complex fluid collection in the left lower vehicle injury, left sternocleidomastoid muscle likely abscess * in regards to elevated troponin medical management recommended by cardiology Objective - Vital Signs Vital signs: Vital Signs Temp 98 F 10/29/23 06:59 Pulse 70 10/29/23 06:59 Resp 17 10/29/23 06:59 BP 146/70 10/29/23 06:59 Pulse Ox 97 10/29/23 08:12 FiO2 Intake & Output 10/28/23 10/29/23 10/29/23 18:59 06:59 18:59 Intake Total 300 Balance 300 Intake: Oral 300 Other: Voiding Method Diaper Diaper Bedside Commode Incontinent Incontinent Diaper Incontinent # Voids 1 2 - Labs CBC & Chem 7: 10/29/23 06:02 10/29/23 06:02 Labs: Abnormal Lab Results - Last 24 Hours (Table) 10/28/23 10/29/23 Range/Units 04:18 06:02 WBC 22.17 H (4.50-10.00) X 10*3/uL RBC 3.60 L (4.10-5.20) X 10*6/uL Hgb 10.2 L (12.0-15.0) g/dL Hct 32.6 L (37.2-46.3) % MCHC 31.3 L (32.0-37.0) g/dL RDW 16.8 H (11.5-14.5) % MPV 13.7 H (9.5-12.2) FL Sodium 134 L (137-145) mmol/L Potassium 3.1 L (3.5-5.1) mmol/L Creatinine 0.42 L (0.52-1.04) mg/dL Glucose 122 H (74-99) mg/dL Calcium 7.6 L (8.4-10.2) mg/dL C-Reactive Protein 12.4 H (<1.0) mg/dL Microbiology - Last 24 Hours (Table) 10/25/23 23:26 Blood Culture - Preliminary Blood 10/27/23 18:53 Gram Stain - Preliminary Other - Other Wound Culture - Preliminary
[2023-10-29 19:09] LABS: Appearance,Urine Clear (Clear); Bilirubin,Urine Negative (Negative); Blood,Urine Negative (Negative); Color,Urine Yellow; Glucose,Urine (UA) Negative (Negative); Ketones,Urine Negative (Negative); Leukocyte Esterase,Urine Negative (Negative); Nitrite,Urine Negative (Negative); Protein,Urine Trace (Negative); Specific Gravity,Urine 1.027 (1.001-1.035)
[2023-10-29] MEDS: MORPHINE SULFATE 2 MG/ML SYRINGE IVP PRN (23:10)
[2023-10-29 23:40] VITALS: TEMP 97.7
[2023-10-29 23:51] LABS: Glucose,Whole Blood 118 mg/dL (70-110)
[2023-10-29] MEDS ORDERED: NALOXONE 0.4 MG/ML 1 ML VIAL IV PRN (23:55)
[2023-10-30] MEDS: PROTAMINE SULFATE IVPB STA (00:20)
[2023-10-30] MEDS: SODIUM CHLORIDE 0.9% IVPB STA (00:20)
--- NOTE | 2023-10-30 00:27 | CT ---
ADDENDUM - Added by Tamara Ratliff M.D. on 10/30/2023 12:38 AM (-07:00) d/w CONFIDENTIAL INVESTIGATOR: presented 10/23 neck abscess, 19 mL drained a few days ago, cytology pending. Now intubated. Likely this a hemorrhage into an abscess. Left clavicle fracture might be chronic. c/w CT neck 10/24/23, the small density in the inferior margin is new, concerning for ongoing bleed and contrast extravasation. EXAM: CT Neck With Intravenous Contrast CLINICAL HISTORY: ITS.REASON CT Reason: neck mass, poss hematoma TECHNIQUE: Axial computed tomography images of the neck with intravenous contrast. CTDI is 6.5 mGy and DLP is 249.5 mGy-cm. This CT exam was performed using one or more of the following dose reduction techniques: automated exposure control, adjustment of the mA and/or kV according to patient size, and/or use of iterative reconstruction technique. COMPARISON: MRI neck soft tissues 10/27/23 FINDINGS: Oropharynx: Unremarkable. No significant tonsillar enlargement. No peritonsillar abscess. Hypopharynx: Unremarkable. Larynx: Unremarkable. Normal epiglottis. Trachea: Unremarkable. No airway compromise. Retropharyngeal space: Unremarkable. Submandibular/parotid glands: Unremarkable. Glands are normal in size. Thyroid: Unremarkable. No enlarged or calcified nodules. Bones/joints: There is a comminuted fracture of the left medial clavicle, difficult to entirely exclude pathologic fracture. This is contiguous with the left intramuscular hematoma. Soft tissues: Large hematoma of the left sternocleidomastoid muscle, spans a craniocaudal length of over 13 cm, diameter 5.2 x 4.2 cm. This has significantly increased in size, could reflect hemorrhage into previous phlegmon or mass. Punctate hyperdensity along the inferior margin on axial series 201/31 is nonspecific, could reflect a small bone fragment. Ongoing hemorrhage and contrast extravasation are not excluded. Vasculature: No acute findings. Lymph nodes: No definite lymphadenopathy. Lung apices: Partially imaged bilateral pleural effusions, nonspecific, difficult to rule out pneumonia. Lungs are incompletely evaluated IMPRESSION: 1. Significant increased size left sternocleidomastoid mass, probably reflects intramuscular hemorrhage. This may be hemorrhage into a previously existing phlegmon or mass. 2. Probable small bony fragment in the inferior margin of the mass, active contrast extravasation and hemorrhage is not excluded. Correlate clinically, with H+H, and if necessary with IR consultation. 3. Fracture of the left medial clavicle is nonspecific, may be posttraumatic, pathologic fracture difficult to exclude. 4. Partially imaged bilateral pleural effusions, nonspecific, cannot rule out pneumonia. <MYCVCSECTION> Communications: 10/30/23 00:33 Call Doctor Regarding Above results, called CHARLOTTE Watson on 10/29 00:33 (-04:00)
[2023-10-30 00:32] LABS: ABG Base Excess 1.5 mmol/L; ABG HCO3 27 mmol/L (21-25); ABG PCO2 46 mmHg (35-45); ABG PH 7.37 (7.35-7.45); ABG PO2 344 mmHg (83-108); ABG TCO2 28 mmol/L (19-24); Allen Test Performed? Yes
[2023-10-30 00:44] LABS: Basophils # (A) 0.1 k/uL (0-0.2); Basophils % (A) 0 %; Eosinophils # (A) 0.1 k/uL (0-0.7); Eosinophils % (A) 1 %; HCT 31.8 % (34.0-46.0); Hypochromasia Slight; Lymphocytes # (A) 1.4 k/uL (1.0-4.8); Lymphocytes % (A) 9 %; MCH 29.6 pg (25.0-35.0); MCV 95.7 fL (80.0-100.0); Mean Platelet Volume 13.2; Monocytes # (A) 0.5 k/uL (0-1.0); Monocytes % (A) 3 %; Neutrophils # (A) 14.2 k/uL (1.3-7.7); Neutrophils % (A) 86 %; Platelet Count 269 k/uL (150-450); RBC 3.32 m/uL (3.80-5.40); RDW 15.2 % (11.5-15.5); WBC 16.5 k/uL (3.8-10.6)
[2023-10-30] MEDS: MORPHINE SULFATE 4 MG/ML SYRINGE IVP STA (00:51)
[2023-10-30 00:56] LABS: HGB 9.8 gm/dL (11.4-16.0)
[2023-10-30 01:01] LABS: African American GFR (CKD) >90 (>60 ml/min/1.73 sqM); Anion Gap 6 mmol/L; Blood Urea Nitrogen 14 mg/dL (7-17); Calcium 7.7 mg/dL (8.4-10.2); Carbon Dioxide 23 mmol/L (22-30); Chloride 105 mmol/L (98-107); Glucose 104 mg/dL (74-99); Magnesium 1.6 mg/dL (1.6-2.3); Non-African American GFR(CKD) >90 (>60 ml/min/1.73 sqM); Potassium 3.3 mmol/L (3.5-5.1); Sodium 134 mmol/L (137-145)
--- NOTE | 2023-10-30 01:02 | P.EN ---
A team note I was notified to evaluate patient due to sudden large mass left neck. patient presented earlier this admission for a mass in her neck, cystic in nature and required US biopsy and aspiration, report indicated that content was bloody and possibly purulent per RN , the neck was flat, and suddenly patient felt a lightening in her neck , and started to swell up. currently tender to palpation, large mass 8X4 inches firm tender to palpation, no skin changes. no strider , no difficulty swallowing , but patient has trouble moving her neck vital signs stable and unchanged compared to before A/P concerns regarding bleeding into the cystic lesion of the left neck stat CT of the neck soft tissue with contrast. monitor airways notified ICU for evaluation for transfer to the ICU for close monitoring check stat CBC and then q6hr pain control with morphine 2 mg IVP q2hr consider IR consultation monitor vital signs d/c lovenox for DVT PPX mechanical DVT PPX
[2023-10-30 01:04] LABS: INR 1.1 (<1.2)
[2023-10-30] MEDS: CLEVIDIPINE BUTYRATE 25 MG in EMPTY BAG 1 BAG IV SCH (01:04)
[2023-10-30 01:05] LABS: Prothrombin Time 12.1 sec (10.0-12.5)
--- NOTE | 2023-10-30 01:12 | XR ---
EXAM: XR Chest, 1 View CLINICAL HISTORY: ITS.REASON XR Reason: ET/OG placement TECHNIQUE: Frontal view of the chest. COMPARISON: No relevant prior studies available. FINDINGS: Lungs: See below. Pleural space: Small LEFT pleural effusion. Cardiomegaly. Mild pulmonary vascular congestion, correlate for CHF. No pneumothorax. Heart: See above. Mediastinum: Unremarkable. Normal mediastinal contour. Bones/joints: Unremarkable. No acute fracture. Tubes, lines and devices: Endotracheal tube terminates 3 cm above the gracie. Feeding tube terminates in the stomach. IMPRESSION: Small LEFT pleural effusion. Cardiomegaly. Mild pulmonary vascular congestion, correlate for CHF.
[2023-10-30] MEDS ORDERED: Potassium Replacement Protocol 1 EACH MISC MISCELLANE PRN (01:13)
[2023-10-30] MEDS ORDERED: Magnesium Replacement Protocol 1 EACH MISC MISCELLANE PRN (01:13)
[2023-10-30] MEDS ORDERED: fentaNYL (PF). 1,000 MCG in SODIUM CHLORIDE 0.9% 80 ML IV SCH (01:15)
[2023-10-30 01:21] LABS: Target Cells Present
[2023-10-30 01:22] LABS: Large Platelets Present
[2023-10-30] MEDS: fentaNYL (PF). 1,000 MCG in SODIUM CHLORIDE 0.9% 80 ML IV SCH (01:42)
[2023-10-30] MEDS: POTASSIUM CHLORIDE 10 MEQ in WATER FOR INJECTION 1 100ML.BAG IVPB SCH (02:18)
[2023-10-30] MEDS: MAGNESIUM SULFATE-D5W PMX 1 GM in DEXTROSE/WATER 1 100ML.BAG IVPB SCH (02:19)
--- NOTE | 2023-10-30 02:30 | P.CNPUL ---
History of Present Illness Consult date: 10/30/23 Requesting physician: Wendie Albrecht Reason for consult: other (ICU management) Chief complaint: Enlarging left neck mass History of present illness: Patient is a 68-year-old white female with past medical history significant for fall back in June,. She is also a chronic smoker. No cancer history. She presented to the emergency room back on 10/24/2023 for an enlarging left- sided neck mass and infectious-like symptoms such as fever and chills. Initial CT of the neck with contrast showed fractured fragments of the medial left clavicle, possibly pathological due to osteomyelitis or metastasis. There is a soft tissue hypodensity extending from the fracture site into the ang ocleidomastoid muscle and extending to near the clavicular level. Findings suspicious for abscess or hematoma. Note that she did fall back in June, injuring her left shoulder, did not initially seek medical care. While inpatient, she did undergo biopsy and aspiration of 17 mL of blood-ti ngedpurulent fluid on 10/27/2023 by interventional radiology. Cytology and microbiology pending. Patient was empirically covered on antibiotics including Unasyn and vancomycin. Early this morning, an A team was called for an enlarging left neck mass. Patient reportedly heard a popping sound, followed by significant enlargement of previous mass. I was contacted by the nighttime Sound physician who responded to the event, and we decided to move the patient to the intensive care unit for airway monitoring. Patient did undergo CTA of the neck which showed a significant increase size of the left sternocleidomastoid mass, probably reflecting intramuscular hemorrhage. There was also a probable small bony fragment in the inferior margin of the mass, active contrast and hemorrhage was not excluded. Fracture of the left medial clavicle is nonspecific, may be posttraumatic, pathologic fracture was not excluded. Appears to be some mild effacement of the trachea. CBC taken at the rapid response had a WBC count of 16.5, hemoglobin 9.8, hematocrit 31.8, platelets 269. Coagulation profile included a PT of 12.1, INR of 1.1, and a PTT of 35. The patient was given a dose of protamine. BMP unremarkable. Since the patient was transferred to the intensive care unit the presumably hemorrhagic conversion has extended past the previously outlined area. The mass now extends to the posterior cervical area and anterior cervical area crossing the midline, as well as inferiorly down the left chest. No significant stridor at that point, however, I was concerned about patient's eventual airway patency. I did speak to my supervising physician, who agreed on prophylactically intubating this patient for airway protection. [facility] did respond to bedside for rapid sequence intubation. Postintubation chest x-ray identified the endotracheal tube 3 cm above the gracie, orogastric tube terminating in the stomach, small left pleural effusion cardiomegaly, mild pulmonary vascular congestion. Initial ventilator settings assist-control, respiratory rate 16, tidal volume 350, FiO2 100%, and PEEP of 5. ABGs 30 minutes postintubation showed a PaO2 of 344, pCO2 of 46, pH of 7.37. FiO2 has been appropriately weaned. Patient was sedated with propofol which is infusing at 50 mcg/kg/min. She is fairly asynchronous with the mechanical ventilator, appears not well sedated. She did report some severe pain in her left neck preintubation. Patient will also be started on fentanyl at 0.5 mcg/kg/h. Blood pressure has remained stable, and is actually hypertensive, she will also be started on Cleviprex as needed if she remains hypertensive. No interventional radiology coverage at night. I did place stat consults for both general surgery and vascular surgery. Both of whom which recommended transfer to tertiary care center. We have reached out to the admitting physician and our transfer team. I have spoken to the patient and patient's son in person, who were both agreeable to above interventions. Review of Systems REVIEW OF SYSTEMS: CONSTITUTIONAL: Denies any recent significant weight loss or weight gain. EYES: Denies change in vision. EARS, NOSE, MOUTH, THROAT: Denies headaches, denies sore throat. Admits neck tightness and severe left-sided neck pain. CARDIOVASCULAR: Denies chest pain, palpitations or syncopal episodes. RESPIRATORY: Denies shortness of breath, cough, congestion or hemoptysis. GASTROINTESTINAL: Denies change in appetite, abdominal pain, nausea and vomiting, or diarrhea GENITOURINARY: Denies hematuria, denies infections. MUSKULOSKELETAL: Denies pain, denies swelling. INTEGUMENTARY: Denies rash, denies eczema. NEUROLOGICAL: Denies recent memory loss, no recent seizure activity. PSYCHIATRIC: Denies anxiety, denies depression. HEMATOLOGIC/LYMPHATIC: Denies anemia, denies enlarged lymph node Past Medical History Past Medical History: No Reported History History of Any Multi-Drug Resistant Organisms: None Reported Past Surgical History: Breast Surgery, Orthopedic Surgery Additional Past Surgical History / Comment(s): ankle surgery, detached retina Past Psychological History: No Psychological Hx Reported Smoking Status: Current some day smoker Past Alcohol Use History: Occasional Past Drug Use History: None Reported - Past Family History Father Family Medical History: Congestive Heart Failure (CHF) Medications and Allergies Home Medications Medication Instructions Recorded Confirmed Type No Known Home Medications 10/24/23 10/24/23 History Allergies Allergy/AdvReac Type Severity Reaction Status Date / Time No Known Allergies Allergy Verified 10/24/23 15:16 Physical Exam Vitals: Vital Signs Temp Pulse Pulse Resp BP BP BP 10/30/23 01:15 92 26 H 178/87 10/30/23 01:00 98 24 221/106 10/30/23 00:45 75 24 189/99 10/30/23 00:44 10/30/23 00:30 90 18 118/65 10/30/23 00:19 10/30/23 00:18 10/30/23 00:15 80 18 99/58 10/30/23 00:00 87 16 188/95 10/29/23 23:50 10/29/23 23:13 97.7 F 89 17 190/92 10/29/23 19:59 98.2 F 88 18 147/76 10/29/23 12:51 97.9 F 91 17 173/81 10/29/23 08:12 10/29/23 06:59 98 F 70 17 146/70 Pulse Ox FiO2 10/30/23 01:15 89 L 10/30/23 01:00 99 10/30/23 00:45 94 L 10/30/23 00:44 40 10/30/23 00:30 100 10/30/23 00:19 100 10/30/23 00:18 100 10/30/23 00:15 100 10/30/23 00:00 92 L 10/29/23 23:50 94 L 10/29/23 23:13 96 10/29/23 19:59 95 10/29/23 12:51 98 10/29/23 08:12 97 10/29/23 06:59 96 Intake and Output 10/29/23 10/29/2324 14:59 22:59 06:59 Intake Total 200 Output Total 600 Balance -400 Intake: Oral 200 Output: Urine 600 Straight 600 Other: Voiding Method Bedside Commode Bedside Commode Diaper Diaper Incontinent Incontinent # Voids 1 GENERAL EXAM: Alert, 68-year-old white female, there is a large left sided neck mass extending past the preoutlined margins. The mass now extends to the posterior cervical area and anterior cervical area crossing the midline, as well as inferiorly down the left anterior chest. HEAD: Normocephalic and atraumatic EYES: Normal reaction of pupils, equal size. NOSE: Clear with pink turbinates. THROAT: No erythema or exudates. NECK: No masses, no JVD. CHEST: No chest wall deformity. LUNGS: Equal air entry with no crackles, wheeze, rhonchi or dullness. No conversational dyspnea or accessory muscle use.. CVS: S1 and S2 normal with no audible murmur, regular rhythm. No extra heart sounds ABDOMEN: No hepatosplenomegaly, active bowel sounds, no guarding or rigidity. SPINE: No scoliosis or deformity SKIN: No rashes CENTRAL NERVOUS SYSTEM: No focal deficits, tone is normal in all 4 extremities. EXTREMITIES: There is no peripheral edema, clubbing, or cyanosis. Peripheral pulses are intact. Results - Laboratory Findings CBC and BMP: 10/29/23 23:51 10/30/23 00:11 ABG ABG pH 7.37 (7.35-7.45) 10/30/23 00:29 ABG pCO2 46 mmHg (35-45) H 10/30/23 00:29 ABG pO2 344 mmHg (83-108) H 10/30/23 00:29 ABG O2 Saturation 100.0 % (94-97) H 10/30/23 00:29 PT/INR, D-dimer PT 12.1 sec (10.0-12.5) 10/30/23 00:11 INR 1.1 (<1.2) 10/30/23 00:11 Abnormal lab findings: Abnormal Labs 10/24/23 10/24/23 10/24/23 15:09 15:09 19:06 WBC 27.1 H RBC Hgb Hct MCHC RDW MPV Immature Gran # Neutrophils # 25.6 H Lymphocytes # Eosinophils # APTT ABG pCO2 ABG pO2 ABG HCO3 ABG Total CO2 ABG O2 Saturation Sodium 135 L Potassium 3.2 L Chloride Carbon Dioxide 17 L BUN 38 H Creatinine 1.27 H Glucose 107 H POC Glucose (mg/dL) Calcium Total Bilirubin AST ALT Alkaline Phosphatase Troponin I 0.168 H* C-Reactive Protein Total Protein Albumin Procalcitonin Urine Protein 10/25/23 10/25/23 10/25/23 02:14 02:14 13:09 WBC 24.6 H RBC Hgb Hct MCHC RDW MPV Immature Gran # Neutrophils # 23.1 H Lymphocytes # 0.9 L Eosinophils # APTT ABG pCO2 ABG pO2 ABG HCO3 ABG Total CO2 ABG O2 Saturation Sodium Potassium Chloride Carbon Dioxide BUN Creatinine Glucose POC Glucose (mg/dL) Calcium Total Bilirubin AST ALT Alkaline Phosphatase Troponin I 0.158 H* C-Reactive Protein Total Protein Albumin Procalcitonin 62.80 H Urine Protein 10/25/23 10/25/23 10/25/23 13:09 23:26 23:26 WBC RBC Hgb Hct MCHC RDW MPV Immature Gran # Neutrophils # Lymphocytes # Eosinophils # APTT ABG pCO2 ABG pO2 ABG HCO3 ABG Total CO2 ABG O2 Saturation Sodium 134 L Potassium 3.3 L Chloride Carbon Dioxide 15 L BUN 34 H Creatinine Glucose 119 H POC Glucose (mg/dL) Calcium Total Bilirubin 1.5 H AST 117 H ALT 43 H Alkaline Phosphatase 402 H Troponin I C-Reactive Protein 32.3 H Total Protein 5.2 L Albumin 2.5 L Procalcitonin 20.80 H Urine Protein 10/26/23 10/26/23 10/27/23 05:59 05:59 16:41 WBC 21.14 H RBC 3.76 L Hgb 10.7 L Hct 32.0 L MCHC RDW 16.2 H MPV 12.9 H Immature Gran # 0.58 H Neutrophils # 19.13 H Lymphocytes # 0.78 L Eosinophils # 0.03 L APTT ABG pCO2 ABG pO2 ABG HCO3 ABG Total CO2 ABG O2 Saturation Sodium 134 L Potassium 3.3 L Chloride Carbon Dioxide 17 L BUN 26 H Creatinine 0.47 L Glucose 102 H POC Glucose (mg/dL) Calcium 8.3 L Total Bilirubin 2.2 H AST 76 H ALT 36 H Alkaline Phosphatase 404 H Troponin I C-Reactive Protein Total Protein 4.9 L Albumin 2.2 L Procalcitonin Urine Protein 10/28/23 10/28/23 10/29/23 04:18 04:18 06:02 WBC 22.17 H RBC 3.60 L Hgb 10.2 L Hct 32.6 L MCHC 31.3 L RDW 16.8 H MPV 13.7 H Immature Gran # Neutrophils # Lymphocytes # Eosinophils # APTT ABG pCO2 ABG pO2 ABG HCO3 ABG Total CO2 ABG O2 Saturation Sodium 134 L Potassium 3.1 L Chloride 108 H Carbon Dioxide BUN 23 H Creatinine 0.41 L 0.42 L Glucose 122 H POC Glucose (mg/dL) Calcium 8.2 L 7.6 L Total Bilirubin AST ALT Alkaline Phosphatase Troponin I C-Reactive Protein 17.0 H 12.4 H Total Protein Albumin Procalcitonin Urine Protein 10/29/23 10/29/23 10/29/23 06:02 16:55 23:49 WBC 13.81 H RBC 3.08 L Hgb 8.9 L Hct 27.8 L MCHC RDW 16.4 H MPV 14.1 H Immature Gran # Neutrophils # Lymphocytes # Eosinophils # APTT ABG pCO2 ABG pO2 ABG HCO3 ABG Total CO2 ABG O2 Saturation Sodium Potassium Chloride Carbon Dioxide BUN Creatinine Glucose POC Glucose (mg/dL) 118 H Calcium Total Bilirubin AST ALT Alkaline Phosphatase Troponin I C-Reactive Protein Total Protein Albumin Procalcitonin Urine Protein Trace H 10/29/23 10/30/23 10/30/23 23:51 00:11 00:11 WBC 16.5 H RBC 3.32 L Hgb 9.8 L D Hct 31.8 L MCHC RDW MPV Immature Gran # Neutrophils # 14.2 H Lymphocytes # Eosinophils # APTT 35.0 H ABG pCO2 ABG pO2 ABG HCO3 ABG Total CO2 ABG O2 Saturation Sodium 134 L Potassium 3.3 L Chloride Carbon Dioxide BUN Creatinine 0.36 L Glucose 104 H POC Glucose (mg/dL) Calcium 7.7 L Total Bilirubin AST ALT Alkaline Phosphatase Troponin I C-Reactive Protein Total Protein Albumin Procalcitonin Urine Protein 10/30/23 00:29 WBC RBC Hgb Hct MCHC RDW MPV Immature Gran # Neutrophils # Lymphocytes # Eosinophils # APTT ABG pCO2 46 H ABG pO2 344 H ABG HCO3 27 H ABG Total CO2 28 H ABG O2 Saturation 100.0 H Sodium Potassium Chloride Carbon Dioxide BUN Creatinine Glucose POC Glucose (mg/dL) Calcium Total Bilirubin AST ALT Alkaline Phosphatase Troponin I C-Reactive Protein Total Protein Albumin Procalcitonin Urine Protein - Diagnostic Findings Chest x-ray: image reviewed Assessment and Plan Assessment: Left neck mass, with probable hemorrhagic conversion, a follow-up CTA of the neck which showed a significant increase size of the left sternocleidomastoid mass, probably reflecting intramuscular hemorrhage. There was also a probable small bony fragment in the inferior margin of the mass, active contrast and hemorrhage was not excluded. Fracture of the left medial clavicle is nonspecific, may be posttraumatic, pathologic fracture was not excluded. Appears to be some mild effacement of the trachea. Patient was prophylactically intubated for airway protection. Mechanical ventilator management, patient was electively intubated for airway protection. Postintubation chest x-ray reviewed. ET tube in a good location. Left clavicular fracture, possibly secondary to trauma, however, pathologic process such as osteomyelitis or bony metastasis is not excluded. Remote history of fall June, Leukocytosis, possible abscess Anemia, possibly acute blood loss Hypokalemia, being replaced Hypertension, May add Cleviprex if needed. Chronic ongoing tobacco dependence Plan: Patient was A-teamed early this morning, and transferred to the intensive care unit for airway monitoring. On my evaluation, the presumable hematoma has grown significantly extending past previous outlined margins. I did reach out to my supervising physician, who agreed with the plan for prophylactic intubation. I spoke to the patient and patient's son who were both agreeable to this intervention. Neck CTA findings were reviewed with radiologist. No on-call interventional radiologist available. I did place that consult for both general surgery and vascular surgery, who both recommend transfer to tertiary care center. Patient was successfully intubated without complication by the [facility] ABGs reviewed. Continue current ventilator settings, may wean FiO2 as appropriate Add Ventilator order set Continue propofol for sedation. Patient currently not well sedated, asynchronous with mechanical ventilator. She did report a significant amount of left neck pain preintubation. Add fentanyl infusion per protocol. Start patient on Cleviprex infusion, to maintain SBP less than 140, if needed. Hold Lovenox, patient was given a dose of protamine Monitor serial CBC Cytology and microbiology from previous biopsy are pending. In the meantime, the patient continues on empiric vancomycin and Unasyn. Electrolytes being replaced Current plan is transfer to tertiary care center. Admitting physician and transfer team are reaching out to accepting facilities. Family is in the waiting room, and have been updated frequently. I have personally seen and examined the patient, performed the documentation and the assessment and plan as written. Number of minutes spent on the visit:20 Time with Patient: Greater than 30
[2023-10-30 04:43] LABS: ABG Base Excess 2.1 mmol/L; ABG HCO3 26 mmol/L (21-25); ABG Oxygen Saturation 99.4 % (94-97); ABG PCO2 40 mmHg (35-45); ABG PH 7.43 (7.35-7.45); ABG PO2 188 mmHg (83-108); ABG TCO2 28 mmol/L (19-24); Allen Test Performed? Yes
[2023-10-30 06:11] VITALS: BP 113/63; PULSE 73; RESP 13
[2023-10-30] MEDS: PROPOFOL 10 MG/ML 20 ML VIAL IV ONE (06:28)
[2023-10-30] MEDS ORDERED: CHLORHEXIDINE GLUCONATE 15 ML CUP MUCOUS MEM SCH (09:00)
--- NOTE | 2023-11-01 11:45 | CDI ---
Documentation Clarification Form Date: 11/01/23 From: Keely Gary Admit Date: 10/24/2023 05:39:00 PM Patient Name: Chip Smith Visit Number: [id number] Discharge Date: 10/30/2023 05:55:00 AM ATTENTION: The Clinical Documentation Specialists (CDI) and [facility] Coding Staff appreciate your assistance in clarifying documentation. Please respond to the clarification below the line at the bottom and electronically sign. The CDI & [facility] Coding staff will review the response and follow-up if needed. Please note: Queries are made part of the Legal Health Record. If you have any questions, please contact the author of this message via ITS. Dr. Tamir Escalera, Your patient has a left neck mass that apparently became larger, and there was concerns that themasswas potentially going to compromise her airway. The decision was made to go ahead and intubate the patient electively. (per your 10/29 consult) Based on this information and the findings below, is there an additional diagnosis that is clinically appropriate for this patient? History/Risk Factors: pathologic left clavicle d/t osteomyelitis, left neck abscess, Tobacco use: smokes Home oxygen: none Clinical Indicators: Left neck mass/abscess Vital signs: P-75, R-18, BP- 189/99, Pulse oximetry: 94 ABG: pH: 7.37 pO2: 344 pCO2: 46 Treatment: Intubation and mechanical ventilation, transfer to O2 and /Vent Is there an additional diagnosis that is clinically appropriate for this patient? [ ] Acute Hypoxic Respiratory Failure [ ] Acute Respiratory Distress [ ] Acute Respiratory Insufficiency [x ] No additional diagnosis/not clinically significant [ ] Other Diagnosis, please specify [ ] Unable to determine No additional diagnoses. MTDD
== END 2023-10-30 05:55 | disposition short-term general hospital (02) | DRG 853 ==
LOC: EC 13:51 → 5NMEDONC 17:39 → 2SICU 10-29 23:40
PROVIDERS: ADMIT Family Medicine; ATTEND Family Medicine
PROC: 0W963ZX Drainage of Neck, Percutaneous Approach, Diagnostic (ICD-10-PCS; 2023-10-27)
PROC: 0K9 Muscles, Drainage (ICD-10-PCS; principal; 2023-10-28)
PROC: 0D9670Z Drainage of Stomach with Drainage Device, Via Natural or Artificial Opening (ICD-10-PCS; 2023-10-29)
PROC: 0BH17EZ Insertion of Endotracheal Airway into Trachea, Via Natural or Artificial Opening (ICD-10-PCS; 2023-10-30)
PROC: 5A1935Z Respiratory Ventilation, Less than 24 Consecutive Hours (ICD-10-PCS; 2023-10-30)
DX: A41.9 Sepsis, unspecified organism (principal); I21.A1 Myocardial infarction type 2; N17.9 Acute kidney failure, unspecified; E87.1 Hypo-osmolality and hyponatremia; M84.611A Pathological fracture in other disease, right shoulder, initial encounter for fracture; M86.9 Osteomyelitis, unspecified; J98.11 Atelectasis; E11.69 Type 2 diabetes mellitus with other specified complication; J44.9 Chronic obstructive pulmonary disease, unspecified; I11.9 Hypertensive heart disease without heart failure; E86.0 Dehydration; E87.6 Hypokalemia; R58 Hemorrhage, not elsewhere classified; R32 Unspecified urinary incontinence; G89.29 Other chronic pain; M54.2 Cervicalgia; F17.200 Nicotine dependence, unspecified, uncomplicated; W01.0XXD Fall on same level from slipping, tripping and stumbling without subsequent striking against object, subsequent encounter; Z91.81 History of falling
CPT/HCPCS: 10030; 21550; 36415; 36600; 70491; 70543; 71045; 71250; 76942; 80048; 80053; 80202; 81003; 82565; 82805; 83735; 84145; 84484; 85025; 85027; 85610; 85730; 86140; 87040; 87070; 87075; 87077; 87086; 87186; 87205; 88305; 93005; 93306; 94002; 94640; 94664; 94760; 96361; 96365; 96366; 96367; 96368; 96372; 96375; 96376; 99285